=== PATIENT | female | born 1930 | race Caucasian/White ===

== ENCOUNTER 2018-04-27 02:39 | Inpatient (IN) ==
[2018-04-27 03:41] LABS: Basophils # (auto) 0.03 K/uL (0-0.2); Basophils % (auto) 0.3 %; Eosinophils # (auto) 0.31 K/uL (0-0.5); Hematocrit (blood only) 39.5 % (37-47); Hemoglobin 12.7 g/dL (12.0-16.0); Immature Granulocytes # (auto) 0.02 K/uL (0.00-0.02); Immature Granulocytes % (auto) 0.2 %; Lymphocytes # (auto) 2.21 K/uL (1.2-3.4); Lymphocytes % (auto) 21.5 %; Mean Corpuscular Hgb Conc 32.2 g/dL (32-36); Mean Corpuscular Volume 98.3 fL (80-100); Mean Platelet Volume 11.7 fL (7.4-10.4); Monocytes # (auto) 0.72 K/uL (0.11-0.59); Neutrophils # (auto) 6.98 K/uL (1.4-6.5); Platelet Count 188 K/uL (130-400); RDW Coefficient of Variation 13.6 % (11.5-14.5); RDW Standard Deviation 48.7 fL (36.4-46.3); Red Blood Count 4.02 M/uL (4.2-5.4); White Blood Count 10.27 K/uL (4.8-10.8)
[2018-04-27 03:51] LABS: Albumin Level 3.3 gm/dl (3.4-5.0); BUN Creatinine Ratio 19.4 (10-20); Calcium 9.1 mg/dl (8.5-10.1); Creatinine Clr Calc Pharmacy 35.5 ml/min; Est GFR (African American) 70.4; Est GFR (Non-African American) 60.7; Potassium 4.3 mmol/L (3.5-5.1)
[2018-04-27 03:53] LABS: Albumin Globulin Ratio 1.1 (0.9-2); Bilirubin,Total 0.6 mg/dl (0.2-1); Globulin 3.1 gm/dl (2.5-4.0); Total Protein 6.4 gm/dl (6.4-8.2)
[2018-04-27 04:51] LABS: INR 1.2 (0.9-1.1); Partial Thromboplastin Ratio 0.8; Prothrombin Time 11.7 Seconds (9.0-12.0)
[2018-04-27 05:09] LABS: Partial Thromboplastin Time 19.9 Seconds (21.0-31.0)
--- NOTE | 2018-04-27 06:49 | Ultrasound Report ---
US pelvic complete CLINICAL HISTORY: vaginal bleeding BLEEDING COMPARISON STUDY: None FINDINGS: The uterus measured 6.1 cm. The endometrial stripe measured 2 mm. The right ovary measured not identified due to overlying bowel content.. The left ovary measured 1.5 cm maximum dimension with normal vascular flow. There is no ultrasonographic evidence of ovarian torsion. It should be noted that ovarian torsion can be present with normal Doppler ultrasonographic findings. There was no evidence of pathologic free pelvic fluid. Bladder is distended with a postvoid residual of 500 cc IMPRESSION: 1. Significant post void bladder residual at 500 cc. 2. Study is otherwise unremarkable for age. 3. Nonvisualization right ovary due to overlying bowel content. The above report was generated using voice recognition software. It may contain grammatical, syntax or spelling errors. Electronically signed by: Dank Martin M.D. 04/27/2018 6:48 AM
[2018-04-27 06:52] LABS: Hematocrit (blood only) 37.7 % (37-47); Hemoglobin 12.2 g/dL (12.0-16.0); Mean Corpuscular Hgb Conc 32.4 g/dL (32-36); Mean Platelet Volume 11.4 fL (7.4-10.4); Platelet Count 148 K/uL (130-400); RDW Coefficient of Variation 13.4 % (11.5-14.5); RDW Standard Deviation 48.1 fL (36.4-46.3); Red Blood Count 3.81 M/uL (4.2-5.4); White Blood Count 9.88 K/uL (4.8-10.8)
--- NOTE | 2018-04-27 08:42 | Emergency Department Note ---
Entered by Brittany Meadows acting as a scribe for Valeria Mixon DO History of Present Illness General Chief complaint: Vaginal Bleeding Time Seen by Provider: 04/27/18 02:45 Source: patient History of Present Illness Onset (ago): day(s) 1 Location: genitals Severity: similar to prior episodes Quality: + other (bleeding) Associated symptoms: + other (dizziness, diarrhea ) The patient is a 88 year old female who presents to the Emergency Room with complaints of vaginal bleeding that began yesterday. She reports that she was diagnosed with a bladder infection, and was given antibiotics. The patient notes that she took 5 of the antibiotics. The patient reports that she had an ultrasound, noting that she had 2 cysts "on her kidneys or ovaries." She complains of dizziness and diarrhea. The patient notes that she has a history of ovarian cysts, and she states that these symptoms feel similar to when the cyst bursts 4 year ago. Home Medications Home Medications Medication Instructions Recorded Confirmed Type aspirin 81 mg PO Q OTHER DAY 04/27/18 04/27/18 History atorvastatin 20 mg PO DAILY 04/27/18 04/27/18 History calcium carbonate-vitamin D3 1 tab PO DAILY 04/27/18 04/27/18 History [Calcium 600 + D(3)] carvedilol 37.6 mg PO BID 04/27/18 04/27/18 History isosorbide dinitrate 10 mg PO HS 04/27/18 04/27/18 History lisinopril 2.5 mg PO HS 04/27/18 04/27/18 History magnesium oxide 400 mg PO DAILY 04/27/18 04/27/18 History vqqveuij-ysp-WL-lycopen-lutein 1 tab PO DAILY 04/27/18 04/27/18 History [Centrum Silver] nitrofurantoin macrocrystal 100 mg PO BID 04/27/18 04/27/18 History omega 7-lxj-onh-fish oil [Fish Oil] 1 cap PO DAILY 04/27/18 04/27/18 History pantoprazole 40 mg PO QAM 04/27/18 04/27/18 History vit C,Z-Ne-oniyq-lutein-zeaxan 1 tab PO BID 04/27/18 04/27/18 History [PreserVision AREDS-2] vitamin E 400 unit PO DAILY 04/27/18 04/27/18 History zoledronic bvtz-pogaquwx-ouain 1 dose IV YEARLY 04/27/18 04/27/18 History [Reclast] Allergies Allergy/AdvReac Type Severity Reaction Status Date / Time latex Allergy Rash Verified 04/27/18 10:07 Past Med/Surg History Medical History Ovarian cyst rupture Surgical History Postoperative state (Acute 06/01/13) Family History Other Family history non-contributory Social History Current Living Situation: Alone Other Information That Helps Us Care for You: No Feels Safe at Home: Yes Safety Concerns: Feels Safe At This Time Smoking Status: Never smoker Do You Dip or Chew Tobacco: No Second Hand Exposure: No Tobacco Cessation Education Requested by Patient: No Hx Alcohol Use: No Hx Substance Use: No Beliefs That Will Affect Care: None Preferred Language: Singaporean Communication Ability: Effective Floating [employer] Supervisor Required: No Review of Systems See HPI for pertinent positives & negatives. and A total of 10 systems reviewed and were otherwise negative Physical Exam Vital Signs Vital Signs - 24 hr 04/27/18 03:02 04/27/18 03:35 04/27/18 04:26 Temperature 36.7 C Temperature Source Oral Sepsis Recent Fever Within 48 Hours No Sepsis Action Taken by Nursing No Action Required Pulse Rate 88 95 H Pulse Rate [Right Finger] 87 Pulse Rhythm Regular Regular Pulse Rhythm [Right Finger] Regular Pulse Strength Normal Pulse Strength [Right Finger] Normal Respiratory Rate 24 16 16 Respiratory Effort / Characteristics Non-Labored Non-Labored Respiratory Depth Normal Normal Respiratory Pattern Regular Regular Blood Pressure 129/52 L Blood Pressure [Left Arm] Blood Pressure [Right Arm] 106/60 Blood Pressure Mean 77 Blood Pressure Mean [Left Arm] Blood Pressure Mean [Right Arm] 75 Blood Pressure Position Lying Blood Pressure Position [Left Arm] Blood Pressure Position [Right Arm] Lying Pulse Oximetry 98 97 Oxygen Delivery Method Room Air Room Air Room Air 04/27/18 06:00 04/27/18 06:28 04/27/18 07:51 Temperature Temperature Source Sepsis Recent Fever Within 48 Hours Sepsis Action Taken by Nursing Pulse Rate Pulse Rate [Right Finger] 94 H 91 H 83 Pulse Rhythm Pulse Rhythm [Right Finger] Regular Regular Regular Pulse Strength Pulse Strength [Right Finger] Normal Normal Normal Respiratory Rate 16 16 18 Respiratory Effort / Characteristics Non-Labored Non-Labored Non-Labored Spontaneous Respiratory Depth Normal Normal Normal Respiratory Pattern Regular Regular Regular Blood Pressure Blood Pressure [Left Arm] Blood Pressure [Right Arm] 116/91 117/89 131/63 Blood Pressure Mean Blood Pressure Mean [Left Arm] Blood Pressure Mean [Right Arm] 99 98 85 Blood Pressure Position Blood Pressure Position [Left Arm] Blood Pressure Position [Right Arm] Lying Lying Pulse Oximetry 99 98 98 Oxygen Delivery Method Room Air Room Air Room Air 04/27/18 08:54 04/27/18 11:49 04/27/18 12:19 Temperature 36.9 C 36.7 C Temperature Source Oral Oral Sepsis Recent Fever Within 48 Hours Sepsis Action Taken by Nursing Pulse Rate 91 H Pulse Rate [Right Finger] 71 89 Pulse Rhythm Pulse Rhythm [Right Finger] Regular Pulse Strength Pulse Strength [Right Finger] Normal Respiratory Rate 18 18 Respiratory Effort / Characteristics Non-Labored Spontaneous Respiratory Depth Normal Respiratory Pattern Regular Blood Pressure Blood Pressure [Left Arm] 135/66 Blood Pressure [Right Arm] 96/53 L Blood Pressure Mean Blood Pressure Mean [Left Arm] 89 Blood Pressure Mean [Right Arm] 67 Blood Pressure Position Blood Pressure Position [Left Arm] Lying Blood Pressure Position [Right Arm] Lying Pulse Oximetry 97 97 Oxygen Delivery Method Room Air Room Air 04/27/18 14:52 04/27/18 16:47 04/27/18 19:10 Temperature 37.2 C 37.3 C Temperature Source Oral Oral Sepsis Recent Fever Within 48 Hours Sepsis Action Taken by Nursing Pulse Rate 91 H Pulse Rate [Right Finger] 91 H 90 Pulse Rhythm Pulse Rhythm [Right Finger] Pulse Strength Pulse Strength [Right Finger] Respiratory Rate 18 18 Respiratory Effort / Characteristics Respiratory Depth Respiratory Pattern Blood Pressure Blood Pressure [Left Arm] Blood Pressure [Right Arm] 134/65 133/65 Blood Pressure Mean Blood Pressure Mean [Left Arm] Blood Pressure Mean [Right Arm] 88 87 Blood Pressure Position Blood Pressure Position [Left Arm] Blood Pressure Position [Right Arm] Lying Lying Pulse Oximetry 95 95 Oxygen Delivery Method Room Air Room Air 04/27/18 23:00 Temperature 36.8 C Temperature Source Oral Sepsis Recent Fever Within 48 Hours Sepsis Action Taken by Nursing Pulse Rate Pulse Rate [Right Finger] 98 H Pulse Rhythm Pulse Rhythm [Right Finger] Pulse Strength Pulse Strength [Right Finger] Respiratory Rate 16 Respiratory Effort / Characteristics Respiratory Depth Respiratory Pattern Blood Pressure Blood Pressure [Left Arm] 90/52 L Blood Pressure [Right Arm] Blood Pressure Mean Blood Pressure Mean [Left Arm] 64 Blood Pressure Mean [Right Arm] Blood Pressure Position Blood Pressure Position [Left Arm] Blood Pressure Position [Right Arm] Pulse Oximetry 95 Oxygen Delivery Method HEENT: Head - normocephalic and atraumatic Pupils are equal, round, and reactive to light. Extraocular eye muscles are intact, and sclera are anicteric. Nose - moist nasal mucosa without discharge. Mouth - moist buccal mucosa. Oropharynx is nonerythematous and there is no tonsillar exudate or edema noted. Neck: Supple; no JVD, nuchal rigidity, cervical lymphadenopathy. Heart: Regular rate and rhythm. There is a 4/6 systolic injection murmur. Lungs: Clear to auscultation bilaterally with no wheezes, rales, or rhonchi. Abdomen: Soft, completely nontender, nondistended, with good bowel sounds. There are no palpable pulsatile masses or hepatosplenomegaly. There is no guarding, rigidity, or rebound noted. Extremities: No evidence of cyanosis, clubbing, or edema. There are easily palpable peripheral pulses. Skin: warm and dry with good turgor and no rashes. Speculum exam: no blood within the vaginal canal. Obvious blood from the urethra. Rectal: Brown stool noted from the rectum with no obvious blood. Course 0316: Past medical records reviewed. The patient was evaluated in room A12, and a complete history and physical examination were performed. 0501: I obtained the patient's past medical records. According to these documents, the patient was originally on Cefdinir and was switched to Macrobid. The patient had an ultra sound on February 10, 2018. These results showed a 1.4 cm cyst on the left kidney, and she was recommended to get an MRI. In her bladder, she had some questionable debris and was recommended to have a cystoscopy. 0511: I went to check on the patient, but she was in ultrasound. 0545: The patient has a massive amount of blood coming out of her bladder. When she stood up, it came out on the floor. 0625: I checked on the patient. She was hemodynamically stable but had another large episode of hematuria 0630: I spoke to Dr. Diallo, Urology, about the patient�s case. She said that that she doesn't care for anyone that is not established with her. 0640: I spoke with Dr. Leal, [facility], about the patient�s case. He recommended that I put in a 20-22 Fr reynoso catheter and hand irrigate. He will further evaluate the patient. 0710: The patient�s hemoglobin dropped from 12.7 to 12.2. 0802: A reynoso catheter was inserted, and 700 mL of blood was removed. The nursing staff is currently in the process of irrigating. Consultations Consultation #1: I spoke to Dr. Diallo, Urology, about the patient�s case. She said that that she doesn't care for anyone that is not established with her. Time: 06:30 Consultation #2: I spoke with Dr. Leal, [facility] Urology, about the patient�s case. He recommended that I put in a 20-22 [place] reynoso catheter and hand irrigate. He will further evaluate the patient. Time: 06:40 Administered Medications Atorvastatin Calcium (Lipitor) 20 mg PO DAILY [facility] Stop: 05/27/18 11:33 Last Admin: 04/27/18 13:30 Dose: Not Given Carvedilol (Coreg) 37.5 mg PO BID [facility] Stop: 05/27/18 11:33 Last Admin: 04/27/18 20:47 Dose: 37.5 mg Admin: 04/27/18 13:30 Dose: Not Given Piperacillin Sod/Tazobactam (Sod 3.375 gm/ Dextrose) 115 mls @ 28.75 mls/hr IV Q8H [facility]; Protocol Stop: 05/07/18 11:59 Last Infusion: 04/27/18 21:51 Dose: 0 mls/hr Admin: 04/27/18 17:47 Dose: 28.8 mls/hr Isosorbide Dinitrate (Isordil) 10 mg PO HS [facility] Stop: 05/27/18 20:59 Last Admin: 04/27/18 20:48 Dose: 10 mg Lisinopril (Zestril) 2.5 mg PO HS [facility] Stop: 05/27/18 20:59 Last Admin: 04/27/18 20:48 Dose: 2.5 mg Magnesium Oxide (Mag-Ox) 400 mg PO DAILY KEVIN Stop: 05/27/18 11:33 Last Admin: 04/27/18 13:33 Dose: 400 mg Pantoprazole Sodium (Protonix) 40 mg PO QAM EKVIN Stop: 05/27/18 11:33 Last Admin: 04/27/18 13:31 Dose: Not Given Discontinued Medications Piperacillin Sod/Tazobactam (Sod 3.375 gm/ Dextrose) 115 mls @ 230 mls/hr IV NOW ONE; Protocol Stop: 04/27/18 12:59 Last Infusion: 04/27/18 15:26 Dose: 0 mls/hr Infusion: 04/27/18 14:45 Dose: 230 mls/hr Infusion: 04/27/18 13:50 Dose: 0 mls/hr Admin: 04/27/18 13:31 Dose: 230 mls/hr Lorazepam (Ativan) 0.25 mg PO NOW STA Stop: 04/27/18 23:40 Last Admin: 04/27/18 23:49 Dose: 0.25 mg Medical Decision Making Differential Diagnosis The differential diagnosis includes: TIA, near-syncope, vasovagal episode, anemia, hypovolemia, dysfunctional uterine bleeding, and ovarian cyst Medical Records Attestation: I reviewed the patient's medical records. Home Medications Current Medication List: was personally reviewed by me Laboratory Data Attestation: I reviewed the patient's lab results. Result diagrams: 04/27/18 23:25 04/27/18 02:16 Lab Results 04/27/18 04/27/18 04/27/18 Range/Units 02:16 02:16 04:33 WBC 10.27 (4.8-10.8) K/uL RBC 4.02 L (4.2-5.4) M/uL Hgb 12.7 (12.0-16.0) g/dL Hct 39.5 (37-47) % MCV 98.3 (80-100) fL MCH 31.6 (25-34) pg MCHC 32.2 (32-36) g/dL RDW Std Deviation 48.7 H (36.4-46.3) fL RDW Coeff of Annie 13.6 (11.5-14.5) % Plt Count 188 (130-400) K/uL MPV 11.7 H (7.4-10.4) fL Immature Gran % (Auto) 0.2 % Neut % (Auto) 68.0 % Lymph % (Auto) 21.5 % Bledsoe % (Auto) 7.0 % Eos % (Auto) 3.0 % Baso % (Auto) 0.3 % Immature Gran # (Auto) 0.02 (0.00-0.02) K/uL Neut # (Auto) 6.98 H (1.4-6.5) K/uL Lymph # (Auto) 2.21 (1.2-3.4) K/uL Bledsoe # (Auto) 0.72 H (0.11-0.59) K/uL Eos # (Auto) 0.31 (0-0.5) K/uL Baso # (Auto) 0.03 (0-0.2) K/uL PT 11.7 (9.0-12.0) Seconds INR 1.2 H (0.9-1.1) APTT 19.9 L (21.0-31.0) Seconds PTT Ratio 0.8 Sodium 138 (136-145) mmol/L Potassium 4.3 (3.5-5.1) mmol/L Chloride 105 (98-107) mmol/L Carbon Dioxide 28 (21-32) mmol/L Anion Gap 5.0 (3-11) BUN 17 (7-18) mg/dl Creatinine 0.85 (0.6-1.2) mg/dl Est Cr Clr Drug Dosing 35.5 ml/min Est GFR ( Amer) 70.4 Est GFR (Non-Af Amer) 60.7 BUN/Creatinine Ratio 19.4 (10-20) Glucose 141 H (70-99) mg/dl Calcium 9.1 (8.5-10.1) mg/dl Total Bilirubin 0.6 (0.2-1) mg/dl AST 29 (15-37) U/L ALT 33 (12-78) U/L Alkaline Phosphatase 91 (45-117) U/L Total Protein 6.4 (6.4-8.2) gm/dl Albumin 3.3 L (3.4-5.0) gm/dl Globulin 3.1 (2.5-4.0) gm/dl Albumin/Globulin Ratio 1.1 (0.9-2) Urine Color Urine Appearance (Clear) Urine pH (4.5-7.5) Ur Specific Nicasio (1.000-1.030) Urine Protein (Negative) Urine Glucose (UA) (Negative) Urine Ketones (Negative) Urine Blood (Negative) Urine Nitrite (Negative) Urine Bilirubin (Negative) Urine Urobilinogen (Negative) Ur Leukocyte Esterase (Negative) Urine WBC (Auto) (0-5) /hpf Urine RBC (Auto) (0-4) /hpf U Hyaline Cast (Auto) (0-5) /lpf U Epithel Cells (Auto) (0-5) /lpf Urine Bacteria (Auto) (Negative) Urine Yeast Blood Type Antibody Screen Antibody Identification Crossmatch 04/27/18 04/27/18 04/27/18 Range/Units 06:44 11:30 11:44 WBC 9.88 (4.8-10.8) K/uL RBC 3.81 L (4.2-5.4) M/uL Hgb 12.2 (12.0-16.0) g/dL Hct 37.7 (37-47) % MCV 99.0 (80-100) fL MCH 32.0 (25-34) pg MCHC 32.4 (32-36) g/dL RDW Std Deviation 48.1 H (36.4-46.3) fL RDW Coeff of Annie 13.4 (11.5-14.5) % Plt Count 148 (130-400) K/uL MPV 11.4 H (7.4-10.4) fL Immature Gran % (Auto) % Neut % (Auto) % Lymph % (Auto) % Bledsoe % (Auto) % Eos % (Auto) % Baso % (Auto) % Immature Gran # (Auto) (0.00-0.02) K/uL Neut # (Auto) (1.4-6.5) K/uL Lymph # (Auto) (1.2-3.4) K/uL Bledsoe # (Auto) (0.11-0.59) K/uL Eos # (Auto) (0-0.5) K/uL Baso # (Auto) (0-0.2) K/uL PT (9.0-12.0) Seconds INR (0.9-1.1) APTT (21.0-31.0) Seconds PTT Ratio Sodium (136-145) mmol/L Potassium (3.5-5.1) mmol/L Chloride (98-107) mmol/L Carbon Dioxide (21-32) mmol/L Anion Gap (3-11) BUN (7-18) mg/dl Creatinine (0.6-1.2) mg/dl Est Cr Clr Drug Dosing ml/min Est GFR ( Amer) Est GFR (Non-Af Amer) BUN/Creatinine Ratio (10-20) Glucose (70-99) mg/dl Calcium (8.5-10.1) mg/dl Total Bilirubin (0.2-1) mg/dl AST (15-37) U/L ALT (12-78) U/L Alkaline Phosphatase (45-117) U/L Total Protein (6.4-8.2) gm/dl Albumin (3.4-5.0) gm/dl Globulin (2.5-4.0) gm/dl Albumin/Globulin Ratio (0.9-2) Urine Color Red Urine Appearance Turbid H (Clear) Urine pH >= 9.0 H (4.5-7.5) Ur Specific Nicasio 1.013 (1.000-1.030) Urine Protein 1+ H (Negative) Urine Glucose (UA) Negative (Negative) Urine Ketones Negative (Negative) Urine Blood 3+ H (Negative) Urine Nitrite Positive H (Negative) Urine Bilirubin Negative (Negative) Urine Urobilinogen Negative (Negative) Ur Leukocyte Esterase 3+ H (Negative) Urine WBC (Auto) >30 H (0-5) /hpf Urine RBC (Auto) >30 H (0-4) /hpf U Hyaline Cast (Auto) 0 (0-5) /lpf U Epithel Cells (Auto) >30 H (0-5) /lpf Urine Bacteria (Auto) Negative (Negative) Urine Yeast Not Reportable Blood Type A Negative Antibody Screen POSITIVE A Antibody Identification Anti-D Crossmatch See Detail 04/27/18 04/27/18 04/27/18 Range/Units 11:44 17:30 23:25 WBC (4.8-10.8) K/uL RBC (4.2-5.4) M/uL Hgb 11.9 L 12.3 11.2 L (12.0-16.0) g/dL Hct 36.8 L 37.7 33.9 L (37-47) % MCV (80-100) fL MCH (25-34) pg MCHC (32-36) g/dL RDW Std Deviation (36.4-46.3) fL RDW Coeff of Annie (11.5-14.5) % Plt Count (130-400) K/uL MPV (7.4-10.4) fL Immature Gran % (Auto) % Neut % (Auto) % Lymph % (Auto) % Bledsoe % (Auto) % Eos % (Auto) % Baso % (Auto) % Immature Gran # (Auto) (0.00-0.02) K/uL Neut # (Auto) (1.4-6.5) K/uL Lymph # (Auto) (1.2-3.4) K/uL Bledsoe # (Auto) (0.11-0.59) K/uL Eos # (Auto) (0-0.5) K/uL Baso # (Auto) (0-0.2) K/uL PT (9.0-12.0) Seconds INR (0.9-1.1) APTT (21.0-31.0) Seconds PTT Ratio Sodium (136-145) mmol/L Potassium (3.5-5.1) mmol/L Chloride (98-107) mmol/L Carbon Dioxide (21-32) mmol/L Anion Gap (3-11) BUN (7-18) mg/dl Creatinine (0.6-1.2) mg/dl Est Cr Clr Drug Dosing ml/min Est GFR ( Amer) Est GFR (Non-Af Amer) BUN/Creatinine Ratio (10-20) Glucose (70-99) mg/dl Calcium (8.5-10.1) mg/dl Total Bilirubin (0.2-1) mg/dl AST (15-37) U/L ALT (12-78) U/L Alkaline Phosphatase (45-117) U/L Total Protein (6.4-8.2) gm/dl Albumin (3.4-5.0) gm/dl Globulin (2.5-4.0) gm/dl Albumin/Globulin Ratio (0.9-2) Urine Color Urine Appearance (Clear) Urine pH (4.5-7.5) Ur Specific Nicasio (1.000-1.030) Urine Protein (Negative) Urine Glucose (UA) (Negative) Urine Ketones (Negative) Urine Blood (Negative) Urine Nitrite (Negative) Urine Bilirubin (Negative) Urine Urobilinogen (Negative) Ur Leukocyte Esterase (Negative) Urine WBC (Auto) (0-5) /hpf Urine RBC (Auto) (0-4) /hpf U Hyaline Cast (Auto) (0-5) /lpf U Epithel Cells (Auto) (0-5) /lpf Urine Bacteria (Auto) (Negative) Urine Yeast Blood Type Antibody Screen Antibody Identification Crossmatch Imaging Data Radiologist's Impression: Radiology results as stated below per my review and the radiologist's interpretation: US PELVIS: Small, partially visualized uterus with peripheral calcification and possibly small fibroids. Endometrial thickness is 2 mm. Prominently distended urinary bladder, 543.59 mL postvoid residual. There is extensive debris/ echogenic material within the dependent urinary bladder. A portion of this is mobile, with a nonmobile echogenic portion at midline on decubitus positioning. No internal vasculature identified on Doppler imaging. This could represent hemorrhage though underlying neoplastic changes cannot be excluded. Correlate for outlet obstruction. Radiologist: Jarocho Crystal MD Study ready at 06:08 and initial results transmitted at 06:41. Blood Pressure Blood Pressure Findings: Normal blood pressure Blood Pressure Disposition: did not require urgent referral MDM Narrative The patient is a 88 year old female who presents to the Emergency Room with complaints of vaginal bleeding that began yesterday. The patient describes some significant cramping associated with the bleeding. She went for an ultrasound here in the emergency department which showed that she had a large amount of blood within her bladder and that the uterus was empty. While she was in ultrasound, she stood up at the bedside and a large amount of blood came from the bladder including large blood clots. She was returned to the emergency department. Her vitals remained stable. We did repeat her hemoglobin to compare to earlier and it had dropped by half of a gram. She had multiple additional episodes of hematuria. A Reynoso catheter was placed and I discussed the case with urology. [facility] into the hospital. Impression & Plan Hematuria Discharge Plan Visit Data *Final* Discharge Date/Time: 04/27/18 11:04 Chief Complaint: Vaginal Bleeding Other Complaint: Neuro Symptoms/Deficit ED Provider: Valeria Mixon Discharge Problem: Hematuria Patient Disposition: Admitted As Inpatient Discharge Instructions Interventions: ED Discharge Assessment Last Done: 04/27/18 11:04 The scribe's documentation has been prepared under my direction and personally reviewed by me in its entirety. I confirm that the note above accurately reflects all work, treatment, procedures, and medical decision making performed by me.
--- NOTE | 2018-04-27 09:21 | History & Physical Report ---
Date of Service April 27, 2018 Assessment & Plan (1) Hematuria: HD stable H&H q6h [address] On hold Dr. Leal notified, consulted NPO for now except sips/ice chips, meds very gentle IV NSS in light of aortic stenosis (2) UTI (urinary tract infection): urine culture done as outpatient 04/20/18: (+) E Coli patient had pruritus with Cefnidir changed to Macrodantin C&S reviewed, start Zosyn IV for now repeat Urine Culture (3) Coronary artery disease: no cardiac symptoms hold ASA in light of gross hematuria continue Carvedilol, Isordil, Lisinopril (4) Aortic stenosis: monitor closely while on IV fluids (5) Hypertension: stable continue above medications (6) CKD (chronic kidney disease) stage 3, GFR 30-59 ml/min: stable monitor DVT Prophylaxis SCDs Full Code as per patient Dispo lives independently at home History of Present Illness Primary Care Provider: Teresa Quinteros DO 88-year-old female with history of CAD, aortic stenosis, hypertension, CKD stage III, presenting with gross hematuriPatient was seen at the PCP office a week ago and was found to have urinary tract infection. Urine culture revealed E. coli and patient was given Cefnidir. Patient was able to tolerate the antibiotics only for 2 days due to not feeling well, pruritus. She was then switched to nitrofurantoin which the patient has been taking for 2 days. One day prior to admission the patient started to note hematuria but denies dysuria. This is associated with some mild suprapubic pain. Denies fever, chills, nausea, vomiting. Denies other symptoms She then proceeded to the ER for evaluation. At the ER, patient's H&H was around 12. Urologist Dr. Leal was consulted. On exam, patient is sitting up in bed, comfortable, nondistressed. Crocker catheter placed draining grossly bloody urine. Denies active shortness of breath, chest pain, dizziness, abdominal pain, nausea. Denies other symptoms Allergies Allergy/AdvReac Type Severity Reaction Status Date / Time latex Allergy Rash Verified 04/27/18 10:07 Home Medications Home Medications Medication Instructions Recorded Confirmed Type aspirin 81 mg PO Q OTHER DAY 04/27/18 04/27/18 History atorvastatin 20 mg PO DAILY 04/27/18 04/27/18 History calcium carbonate-vitamin D3 1 tab PO DAILY 04/27/18 04/27/18 History [Calcium 600 + D(3)] carvedilol 37.6 mg PO BID 04/27/18 04/27/18 History isosorbide dinitrate 10 mg PO HS 04/27/18 04/27/18 History lisinopril 2.5 mg PO HS 04/27/18 04/27/18 History magnesium oxide 400 mg PO DAILY 04/27/18 04/27/18 History eefudjqw-hdh-JR-lycopen-lutein 1 tab PO DAILY 04/27/18 04/27/18 History [Centrum Silver] omega 8-iqc-lzn-fish oil [Fish Oil] 1 cap PO DAILY 04/27/18 04/27/18 History pantoprazole 40 mg PO QAM 04/27/18 04/27/18 History vit C,G-Yt-gbhfu-lutein-zeaxan 1 tab PO BID 04/27/18 04/27/18 History [PreserVision AREDS-2] vitamin E 400 unit PO DAILY 04/27/18 04/27/18 History zoledronic oiwm-webjizyd-tstnh 1 dose IV YEARLY 04/27/18 04/27/18 History [Reclast] nitrofurantoin macrocrystal 100 mg PO BID 5 Days #10 cap 04/28/18 Rx Past Med/Surg History Medical History Ovarian cyst rupture Surgical History Postoperative state (Acute 06/01/13) Family History Other Family history non-contributory Social History Current Living Situation: Alone Other Information That Helps Us Care for You: No Feels Safe at Home: Yes Safety Concerns: Feels Safe At This Time Smoking Status: Never smoker Do You Dip or Chew Tobacco: No Second Hand Exposure: No Tobacco Cessation Education Requested by Patient: No Hx Alcohol Use: No Hx Substance Use: No Beliefs That Will Affect Care: None Preferred Language: Sudanese Review of Systems Constitutional- no fever; no weight loss Eyes- no acute visual changes ENT- no sinus drainage; no pharyngitis Pulmonary- no cough, no wheezing, no shortness of breath Cardiac- no chest pain, no palpitations, no orthopnea, no dependent edema GI- no nausea, no vomiting, no diarrhea, no melena, no hematochezia - (+) as noted above Musculoskeletal- no arthralgias, no myalgias Derm- no rashes, no new skin lesions, no changing skin lesions Hematologic- no unusual bruising, no unusual bleeding Lymphatics- no adenopathy Endocrine- no polyuria or polydipsia; no heat or cold intolerance Neuro- no headaches, no focal neurologic symptoms Psych- no anxiety, no depression Physical Exam 2 Vital Signs (Past 24 Hours): Last Vital Signs Temp 36.9 C 04/27/18 08:54 Pulse 71 04/27/18 08:54 Resp 18 04/27/18 08:54 BP 96/53 L 04/27/18 08:54 Pulse Ox 97 04/27/18 08:54 Physical Exam: General- oriented x 3, not in distress, speaks in sentences with no effort or accessory muscle use Head- atraumatic Eyes- PERRL, EOMI, anicteric ENT- oropharynx clear Neck- supple, no JVD, no adenopathy, no thyromegaly; carotids +2/2, no bruits appreciated Lungs- clear to auscultation bilaterally, no rales/wheezes Heart- normal rate, regular rhythm; no murmur, no gallop, no rub appreciated Abdomen- normal bowel sounds, nondistended, soft, nontender, no masses or hepatosplenomegaly Extremities- no pretibial edema, no calf tenderness; peripheral pulses intact Neuro- alert, oriented x 3; CN 2-12 grossly intact; motor 5/5 bilaterally; sensation 100% on all extremities; no other gross focal neurologic deficits Skin- warm & dry Results & Data Laboratory Results Laboratory Results - last 24 hr 04/27/18 04/27/18 04/27/18 11:44 17:30 23:25 WBC RBC Hgb 12.3 11.2 L Hct 37.7 33.9 L MCV MCH MCHC RDW Std Deviation RDW Coeff of Annie Plt Count MPV Immature Gran % (Auto) Neut % (Auto) Lymph % (Auto) [place] % (Auto) Eos % (Auto) Baso % (Auto) Immature Gran # (Auto) Neut # (Auto) Lymph # (Auto) [place] # (Auto) Eos # (Auto) Baso # (Auto) Sodium Potassium Chloride Carbon Dioxide Anion Gap BUN Creatinine Est Cr Clr Drug Dosing Est GFR ( Amer) Est GFR (Non-Af Amer) BUN/Creatinine Ratio Glucose Calcium Antibody Identification Anti-D 04/28/18 04/28/18 11:45 11:45 WBC 8.56 RBC 3.61 L Hgb 11.5 L Hct 35.7 L MCV 98.9 MCH 31.9 MCHC 32.2 RDW Std Deviation 50.5 H RDW Coeff of Annie 13.9 Plt Count 191 MPV 9.7 Immature Gran % (Auto) 0.2 Neut % (Auto) 69.6 Lymph % (Auto) 19.9 [place] % (Auto) 8.2 Eos % (Auto) 1.6 Baso % (Auto) 0.5 Immature Gran # (Auto) 0.02 Neut # (Auto) 5.96 Lymph # (Auto) 1.70 [place] # (Auto) 0.70 H Eos # (Auto) 0.14 Baso # (Auto) 0.04 Sodium 139 Potassium 3.7 Chloride 105 Carbon Dioxide 30 Anion Gap 5.0 BUN 15 Creatinine 0.99 Est Cr Clr Drug Dosing 30.5 Est GFR ( Amer) 58.6 Est GFR (Non-Af Amer) 50.5 BUN/Creatinine Ratio 15.3 Glucose 128 H Calcium 8.8 Antibody Identification _ (1) Hematuria Glomerular morphologic changes: Hematuria type: unspecified type Qualified Code(s): R31.9 - Hematuria, unspecified
[2018-04-27] MEDS ORDERED: ACETAMINOPHEN 325 MG TAB PO PRN (11:34)
[2018-04-27] MEDS ORDERED: ONDANSETRON INJ 2 MG/ML 2 ML VIAL IV PRN (11:34)
[2018-04-27] MEDS ORDERED: SODIUM CHLORIDE 0.9% 250 ML IV PRN (11:34)
[2018-04-27 11:45] LABS: Appearance Urine Turbid (Clear); Bacteria Urine Automated Negative (Negative); Color Urine Red; Epithelial Cell Urine Auto >30 /lpf (0-5); Glucose Urine UA Negative (Negative); Ketones Urine Negative (Negative); Leukocyte Esterase Urine 3+ (Negative); Nitrite Urine Positive (Negative); Specific Gravity Urine 1.013 (1.000-1.030); Urobilinogen Urine Negative (Negative); WBC Urine Automated >30 /hpf (0-5); pH Urine >= 9.0 (4.5-7.5)
[2018-04-27 11:54] LABS: Bilirubin Urine Negative (Negative); Ictotest Urine Negative (Negative); Protein Urine 1+ (Negative)
[2018-04-27] MEDS ORDERED: PIPERACILL/TAZOBAC CONSULT ACTIVE PRN (11:55)
[2018-04-27 11:57] LABS: Hematocrit (blood only) 36.8 % (37-47); Hemoglobin 11.9 g/dL (12.0-16.0)
[2018-04-27 12:01] LABS: Cast Urine Automated 0 /lpf (0-5)
[2018-04-27] MEDS ORDERED: PIPERACILLIN/TAZOBACTAM 3.375 GM in DEXTROSE 5% 100 ML IV ONE (12:30)
[2018-04-27] MEDS: ATORVASTATIN 20 MG TAB PO SCH (13:30)
[2018-04-27] MEDS: CARVEDILOL 25 MG TAB PO SCH ×2 (13:30→20:47)
[2018-04-27] MEDS: PANTOprazole 40 MG TAB PO SCH (13:31)
[2018-04-27] MEDS: MAGNESIUM OXIDE 400 MG TAB PO SCH (13:33)
--- NOTE | 2018-04-27 16:05 | Urology Consultation ---
Date of Consultation April 27, 2018 Assessment & Plan (1) UTI (urinary tract infection): (2) Hematuria: 88yo F with clot retention and gross hematuria in the setting [facility] H/H and Cr stable. VS stable, afebrile Urine clearing up nicely, light pink to clear with minimal clots this afternoon. Repeat UC&S pending, Continue broad spectrum abx and IVF's. Recommendations: Maintain catheter for 7-10d to allow for maximum drainage and bladder rest. Hold ASA, monitor H/H Okay to gently hand irrigate PRN for clots. Okay for diet from our perspective. NPO at SD to reassess. Thank you for the consultation, we will continue to monitor closely with primary service. History of Present Illness Reason for Consultation: gross hematuria Requesting Physician: Dr. Marley Attending Physician: Raul Marley MD History of Present Illness 88yo F with hx of HTN, , CKD presents to [facility] ED this morning after experiencing what she felt to be vaginal bleeding since Tuesday. Currently being treated for E.Coli UTI by PCP, 5 days into treatment. UTI symptoms characterized by urgency/frequency and dysuria. Did not experience hematuria at that time. Pt reports having some cramping, like menstrual cramping with bleeding. Pelvic US notes bladder distention with large volume PVR. Reynoso catheter placed in ED, drained 700cc wolf red urine with clots. Hand irrigation done, pt tolerated well she reports. Pt denies suprapubic or flank pain. Denies bladder spasms. Sitting in bed, alert and oriented. Per patient she has been attempting to make apt with Urology for many months regarding recurrent UTIs. UTIs characterized by Urg/frequency and incontinence, treated previously by her PCP. States she gave her a "big bottle of cipro" and would take that PRN. States she has had one prior episode of 'bleeding', when a cyst ruptured. Unclear if ovarian or renal, unclear if hematuria or vaginal bleeding. pt unable to distinguish. CAD with 3 stents, takes a baby ASA only, every other day. Allergies Allergy/AdvReac Type Severity Reaction Status Date / Time latex Allergy Rash Verified 04/27/18 10:07 Home Medications Home Medications Medication Instructions Recorded Confirmed Type aspirin 81 mg PO Q OTHER DAY 04/27/18 04/27/18 History atorvastatin 20 mg PO DAILY 04/27/18 04/27/18 History calcium carbonate-vitamin D3 1 tab PO DAILY 04/27/18 04/27/18 History [Calcium 600 + D(3)] carvedilol 37.6 mg PO BID 04/27/18 04/27/18 History isosorbide dinitrate 10 mg PO HS 04/27/18 04/27/18 History lisinopril 2.5 mg PO HS 04/27/18 04/27/18 History magnesium oxide 400 mg PO DAILY 04/27/18 04/27/18 History fcprwvet-qad-PJ-lycopen-lutein 1 tab PO DAILY 04/27/18 04/27/18 History [Centrum Silver] nitrofurantoin macrocrystal 100 mg PO BID 04/27/18 04/27/18 History omega 9-zna-uaa-fish oil [Fish Oil] 1 cap PO DAILY 04/27/18 04/27/18 History pantoprazole 40 mg PO QAM 04/27/18 04/27/18 History vit C,M-Dg-pnipd-lutein-zeaxan 1 tab PO BID 04/27/18 04/27/18 History [PreserVision AREDS-2] vitamin E 400 unit PO DAILY 04/27/18 04/27/18 History zoledronic leva-bebqzaec-vscsn 1 dose IV YEARLY 04/27/18 04/27/18 History [Reclast] Patient History Medical History Ovarian cyst rupture Surgical History Postoperative state (Acute 06/01/13) Family History Other Family history non-contributory Social History Current Living Situation: Alone Other Information That Helps Us Care for You: No Feels Safe at Home: Yes Safety Concerns: Feels Safe At This Time Smoking Status: Never smoker Do You Dip or Chew Tobacco: No Second Hand Exposure: No Tobacco Cessation Education Requested by Patient: No Hx Alcohol Use: No Hx Substance Use: No Beliefs That Will Affect Care: None Preferred Language: French Communication Ability: Effective Sas Bi Developer Required: No Review of Systems Constitutional: no fever and no chills Eyes: no problem reported Ear, Nose, Mouth, Throat: no ear pain Respiratory: no cough and no dyspnea Cardiovascular: no chest pain Gastrointestinal: no abdominal pain Genitourinary (Female): + hematuria; no dysuria, no urinary urgency and no flank pain Musculoskeletal: no back pain Integumentary: no acne Neurologic: no numbness and no paresthesia Psychiatric: no behavioral changes Endocrine: no fatigue Hematologic / Lymphatic: no unexplained weight loss Physical Exam 2 Vital Signs (Past 24 Hours): Last Vital Signs Temp 37.2 C 04/27/18 14:52 Pulse 91 H 04/27/18 14:52 Resp 18 04/27/18 14:52 BP 134/65 04/27/18 14:52 Pulse Ox 95 04/27/18 14:52 Constitutional: average body habitus; no acute distress and not lethargic Eyes: no nystagmus corrective lenses on ENMT: Ears: no hearing impairment Neck: trachea midline Respiratory: no respiratory distress and does not use accessory muscles Cardiovascular: Vessels: no JVD Gastrointestinal (Abdomen): Inspection/Auscultation: abdomen not distended and no abdominal edema Musculoskeletal: Head/Neck/Chest: + abnormal head shape Skin: no rashes, warm and dry Neurologic: awake; not confused and not obtunded Psychiatric: Orientation: alert and oriented x 3 Eye Contact: good eye contact Genitourinary: reynoso catheter draining pink to clear with scattered small blot clots. Lymphatic: no cervical or axillary lymphadenopathy Results & Data Laboratory Results Laboratory Results - last 48 hr 04/27/18 04/27/18 04/27/18 02:16 02:16 04:33 WBC 10.27 RBC 4.02 L Hgb 12.7 Hct 39.5 MCV 98.3 MCH 31.6 MCHC 32.2 RDW Std Deviation 48.7 H RDW Coeff of Annie 13.6 Plt Count 188 MPV 11.7 H Immature Gran % (Auto) 0.2 Neut % (Auto) 68.0 Lymph % (Auto) 21.5 [place] % (Auto) 7.0 Eos % (Auto) 3.0 Baso % (Auto) 0.3 Immature Gran # (Auto) 0.02 Neut # (Auto) 6.98 H Lymph # (Auto) 2.21 [place] # (Auto) 0.72 H Eos # (Auto) 0.31 Baso # (Auto) 0.03 PT 11.7 INR 1.2 H APTT 19.9 L PTT Ratio 0.8 Sodium 138 Potassium 4.3 Chloride 105 Carbon Dioxide 28 Anion Gap 5.0 BUN 17 Creatinine 0.85 Est Cr Clr Drug Dosing 35.5 Est GFR ( Amer) 70.4 Est GFR (Non-Af Amer) 60.7 BUN/Creatinine Ratio 19.4 Glucose 141 H Calcium 9.1 Total Bilirubin 0.6 AST 29 ALT 33 Alkaline Phosphatase 91 Total Protein 6.4 Albumin 3.3 L Globulin 3.1 Albumin/Globulin Ratio 1.1 Urine Color Urine Appearance Urine pH Ur Specific [place] Urine Protein Urine Glucose (UA) Urine Ketones Urine Blood Urine Nitrite Urine Bilirubin Urine Urobilinogen Ur Leukocyte Esterase Urine WBC (Auto) Urine RBC (Auto) U Hyaline Cast (Auto) U Epithel Cells (Auto) Urine Bacteria (Auto) Urine Yeast Blood Type Antibody Screen Antibody Identification Crossmatch 04/27/18 04/27/18 04/27/18 06:44 11:30 11:44 WBC 9.88 RBC 3.81 L Hgb 12.2 Hct 37.7 MCV 99.0 MCH 32.0 MCHC 32.4 RDW Std Deviation 48.1 H RDW Coeff of Annie 13.4 Plt Count 148 MPV 11.4 H Immature Gran % (Auto) Neut % (Auto) Lymph % (Auto) [place] % (Auto) Eos % (Auto) Baso % (Auto) Immature Gran # (Auto) Neut # (Auto) Lymph # (Auto) [place] # (Auto) Eos # (Auto) Baso # (Auto) PT INR APTT PTT Ratio Sodium Potassium Chloride Carbon Dioxide Anion Gap BUN Creatinine Est Cr Clr Drug Dosing Est GFR ( Amer) Est GFR (Non-Af Amer) BUN/Creatinine Ratio Glucose Calcium Total Bilirubin AST ALT Alkaline Phosphatase Total Protein Albumin Globulin Albumin/Globulin Ratio Urine Color Red Urine Appearance Turbid H Urine pH >= 9.0 H Ur Specific [place] 1.013 Urine Protein 1+ H Urine Glucose (UA) Negative Urine Ketones Negative Urine Blood 3+ H Urine Nitrite Positive H Urine Bilirubin Negative Urine Urobilinogen Negative Ur Leukocyte Esterase 3+ H Urine WBC (Auto) >30 H Urine RBC (Auto) >30 H U Hyaline Cast (Auto) 0 U Epithel Cells (Auto) >30 H Urine Bacteria (Auto) Negative Urine Yeast Not Reportable Blood Type A Negative Antibody Screen POSITIVE A Antibody Identification Anti-D Crossmatch See Detail 04/27/18 11:44 WBC RBC Hgb 11.9 L Hct 36.8 L MCV MCH MCHC RDW Std Deviation RDW Coeff of Annie Plt Count MPV Immature Gran % (Auto) Neut % (Auto) Lymph % (Auto) [place] % (Auto) Eos % (Auto) Baso % (Auto) Immature Gran # (Auto) Neut # (Auto) Lymph # (Auto) [place] # (Auto) Eos # (Auto) Baso # (Auto) PT INR APTT PTT Ratio Sodium Potassium Chloride Carbon Dioxide Anion Gap BUN Creatinine Est Cr Clr Drug Dosing Est GFR ( Amer) Est GFR (Non-Af Amer) BUN/Creatinine Ratio Glucose Calcium Total Bilirubin AST ALT Alkaline Phosphatase Total Protein Albumin Globulin Albumin/Globulin Ratio Urine Color Urine Appearance Urine pH Ur Specific [place] Urine Protein Urine Glucose (UA) Urine Ketones Urine Blood Urine Nitrite Urine Bilirubin Urine Urobilinogen Ur Leukocyte Esterase Urine WBC (Auto) Urine RBC (Auto) U Hyaline Cast (Auto) U Epithel Cells (Auto) Urine Bacteria (Auto) Urine Yeast Blood Type Antibody Screen Antibody Identification Crossmatch _ (1) Hematuria Glomerular morphologic changes: Hematuria type: unspecified type Qualified Code(s): R31.9 - Hematuria, unspecified
[2018-04-27] MEDS: PIPERACILLIN/TAZOBACTAM 3.375 GM in DEXTROSE 5% 100 ML IV SCH (17:47)
[2018-04-27 18:03] LABS: Hematocrit (blood only) 37.7 % (37-47); Hemoglobin 12.3 g/dL (12.0-16.0)
[2018-04-27] MEDS ORDERED: LISINOPRIL 2.5 MG TAB PO SCH (21:00)
[2018-04-27] MEDS ORDERED: ISOSORBIDE DINITRATE 10 MG TAB PO SCH (21:00)
[2018-04-27 23:33] LABS: Hematocrit (blood only) 33.9 % (37-47); Hemoglobin 11.2 g/dL (12.0-16.0)
[2018-04-27] MEDS ORDERED: LORazepam 0.5 MG TAB PO STA (23:39)
[2018-04-28] MEDS: PIPERACILLIN/TAZOBACTAM 3.375 GM in DEXTROSE 5% 100 ML IV SCH ×2 (02:10→11:04)
--- NOTE | 2018-04-28 07:36 | Urology Progress Note ---
Date of Service April 28, 2018 Assessment & Plan (1) Hematuria: A/P 88 yo female with resolved gross hematuria, UTI. Findings reviewed with patient. Will order DC of reynoso catheter, urine improved. Patient is in the midst of an outpatient course of antibiotics for UTI - she is instructed to complete this. Will request past outpatient records and imaging for review prior to ordering any new testing. Will arrange for outpatient cysto in ~ 3 weeks to allow for some of her acute irritation to resolve to continue her hematuria evaluation. Worrisome signs and symptoms reviewed. Stable for DC home from a perspective. Thank you for allowing us to participate in this patient's care. Please recall our service with any questions or concers. Subjective 88 yo female with a history of irritative voiding symptoms, renal cysts, recurrent UTIs per her recounting and recent gross hematuria seen by our service. [employer]ENTICE consult and progress notes reviewed. Patient feels well, little bother, CC arthritic stiffness. Urine much improved, clear in catheter. Outpatient events over the past few months recounted by patient. Labs stable, renal function wnl. Constitutional: no fever and no chills Respiratory: no hemoptysis Cardiovascular: no chest pain Gastrointestinal: no abdominal pain, no nausea and no vomiting Genitourinary (Female): + as per Subjective / HPI Musculoskeletal: + back pain, + joint pain and + stiffness Integumentary: no acne and no boil Neurologic: no paralysis and no numbness Psychiatric: no hopelessness Hematologic / Lymphatic: no easy bleeding Physical Exam 2 Vital Signs (Past 24 Hours): Last Vital Signs Temp 36.9 C 04/28/18 07:18 Pulse 79 04/28/18 07:18 Resp 16 04/28/18 07:18 BP 110/58 L 04/28/18 07:18 Pulse Ox 91 04/28/18 07:18 Constitutional: WD/WN, vitals as above Neck: trachea midline; no anterior neck swelling Respiratory: no respiratory distress and does not use accessory muscles Cardiovascular: Vessels: radial pulses present Gastrointestinal (Abdomen): Percussion/Palpation: abdomen soft; abdomen nontender Skin: normal turgor Neurologic: awake; not obtunded Psychiatric: Orientation: oriented x 3 Lymphatic: no lymphadenopathy Results & Data Laboratory Results Laboratory Results - last 48 hr 04/27/18 04/27/18 04/27/18 02:16 02:16 04:33 WBC 10.27 RBC 4.02 L Hgb 12.7 Hct 39.5 MCV 98.3 MCH 31.6 MCHC 32.2 RDW Std Deviation 48.7 H RDW Coeff of Annie 13.6 Plt Count 188 MPV 11.7 H Immature Gran % (Auto) 0.2 Neut % (Auto) 68.0 Lymph % (Auto) 21.5 [place] % (Auto) 7.0 Eos % (Auto) 3.0 Baso % (Auto) 0.3 Immature Gran # (Auto) 0.02 Neut # (Auto) 6.98 H Lymph # (Auto) 2.21 [place] # (Auto) 0.72 H Eos # (Auto) 0.31 Baso # (Auto) 0.03 PT 11.7 INR 1.2 H APTT 19.9 L PTT Ratio 0.8 Sodium 138 Potassium 4.3 Chloride 105 Carbon Dioxide 28 Anion Gap 5.0 BUN 17 Creatinine 0.85 Est Cr Clr Drug Dosing 35.5 Est GFR ( Amer) 70.4 Est GFR (Non-Af Amer) 60.7 BUN/Creatinine Ratio 19.4 Glucose 141 H Calcium 9.1 Total Bilirubin 0.6 AST 29 ALT 33 Alkaline Phosphatase 91 Total Protein 6.4 Albumin 3.3 L Globulin 3.1 Albumin/Globulin Ratio 1.1 Urine Color Urine Appearance Urine pH Ur Specific [place] Urine Protein Urine Glucose (UA) Urine Ketones Urine Blood Urine Nitrite Urine Bilirubin Urine Urobilinogen Ur Leukocyte Esterase Urine WBC (Auto) Urine RBC (Auto) U Hyaline Cast (Auto) U Epithel Cells (Auto) Urine Bacteria (Auto) Urine Yeast Blood Type Antibody Screen Antibody Identification Crossmatch 04/27/18 04/27/18 04/27/18 06:44 11:30 11:44 WBC 9.88 RBC 3.81 L Hgb 12.2 Hct 37.7 MCV 99.0 MCH 32.0 MCHC 32.4 RDW Std Deviation 48.1 H RDW Coeff of Annie 13.4 Plt Count 148 MPV 11.4 H Immature Gran % (Auto) Neut % (Auto) Lymph % (Auto) [place] % (Auto) Eos % (Auto) Baso % (Auto) Immature Gran # (Auto) Neut # (Auto) Lymph # (Auto) [place] # (Auto) Eos # (Auto) Baso # (Auto) PT INR APTT PTT Ratio Sodium Potassium Chloride Carbon Dioxide Anion Gap BUN Creatinine Est Cr Clr Drug Dosing Est GFR ( Amer) Est GFR (Non-Af Amer) BUN/Creatinine Ratio Glucose Calcium Total Bilirubin AST ALT Alkaline Phosphatase Total Protein Albumin Globulin Albumin/Globulin Ratio Urine Color Red Urine Appearance Turbid H Urine pH >= 9.0 H Ur Specific [place] 1.013 Urine Protein 1+ H Urine Glucose (UA) Negative Urine Ketones Negative Urine Blood 3+ H Urine Nitrite Positive H Urine Bilirubin Negative Urine Urobilinogen Negative Ur Leukocyte Esterase 3+ H Urine WBC (Auto) >30 H Urine RBC (Auto) >30 H U Hyaline Cast (Auto) 0 U Epithel Cells (Auto) >30 H Urine Bacteria (Auto) Negative Urine Yeast Not Reportable Blood Type A Negative Antibody Screen POSITIVE A Antibody Identification Anti-D Crossmatch See Detail 04/27/18 04/27/18 04/27/18 11:44 17:30 23:25 WBC RBC Hgb 11.9 L 12.3 11.2 L Hct 36.8 L 37.7 33.9 L MCV MCH MCHC RDW Std Deviation RDW Coeff of Annie Plt Count MPV Immature Gran % (Auto) Neut % (Auto) Lymph % (Auto) [place] % (Auto) Eos % (Auto) Baso % (Auto) Immature Gran # (Auto) Neut # (Auto) Lymph # (Auto) [place] # (Auto) Eos # (Auto) Baso # (Auto) PT INR APTT PTT Ratio Sodium Potassium Chloride Carbon Dioxide Anion Gap BUN Creatinine Est Cr Clr Drug Dosing Est GFR ( Amer) Est GFR (Non-Af Amer) BUN/Creatinine Ratio Glucose Calcium Total Bilirubin AST ALT Alkaline Phosphatase Total Protein Albumin Globulin Albumin/Globulin Ratio Urine Color Urine Appearance Urine pH Ur Specific [place] Urine Protein Urine Glucose (UA) Urine Ketones Urine Blood Urine Nitrite Urine Bilirubin Urine Urobilinogen Ur Leukocyte Esterase Urine WBC (Auto) Urine RBC (Auto) U Hyaline Cast (Auto) U Epithel Cells (Auto) Urine Bacteria (Auto) Urine Yeast Blood Type Antibody Screen Antibody Identification Crossmatch _ (1) Hematuria Glomerular morphologic changes: Hematuria type: unspecified type Qualified Code(s): R31.9 - Hematuria, unspecified
[2018-04-28] MEDS: ATORVASTATIN 20 MG TAB PO SCH (08:33)
[2018-04-28] MEDS: PANTOprazole 40 MG TAB PO SCH (08:33)
[2018-04-28] MEDS: CARVEDILOL 25 MG TAB PO SCH (08:33)
[2018-04-28] MEDS: MAGNESIUM OXIDE 400 MG TAB PO SCH (08:34)
[2018-04-28 12:02] LABS: Basophils # (auto) 0.04 K/uL (0-0.2); Basophils % (auto) 0.5 %; Eosinophils # (auto) 0.14 K/uL (0-0.5); Eosinophils % (auto) 1.6 %; Hematocrit (blood only) 35.7 % (37-47); Hemoglobin 11.5 g/dL (12.0-16.0); Immature Granulocytes # (auto) 0.02 K/uL (0.00-0.02); Immature Granulocytes % (auto) 0.2 %; Lymphocytes % (auto) 19.9 %; Mean Corpuscular Hgb Conc 32.2 g/dL (32-36); Mean Corpuscular Volume 98.9 fL (80-100); Mean Platelet Volume 9.7 fL (7.4-10.4); Monocytes % (auto) 8.2 %; Neutrophils # (auto) 5.96 K/uL (1.4-6.5); Neutrophils % (auto) 69.6 %; Platelet Count 191 K/uL (130-400); RDW Coefficient of Variation 13.9 % (11.5-14.5); RDW Standard Deviation 50.5 fL (36.4-46.3); Red Blood Count 3.61 M/uL (4.2-5.4); White Blood Count 8.56 K/uL (4.8-10.8)
[2018-04-28 12:26] LABS: BUN Creatinine Ratio 15.3 (10-20); Calcium 8.8 mg/dl (8.5-10.1); Creatinine Clr Calc Pharmacy 30.5 ml/min; Est GFR (African American) 58.6; Est GFR (Non-African American) 50.5; Potassium 3.7 mmol/L (3.5-5.1)
--- NOTE | 2018-04-28 15:18 | Hospitalist Progress Note ---
Date of Service April 28, 2018 Assessment & Plan (1) Hematuria: in the setting of UTI Pelvic US: 1. Significant post void bladder residual at 500 cc. 2. Study is otherwise unremarkable for age. 3. Nonvisualization right ovary due to overlying bowel content. Hg stayed around 11 hematuria resolved while admitted Urologist Dr. Leal notified, consulted recommending to finish treatment for UTI and follow up in his office for Cystoscopy in 3 weeks (2) UTI (urinary tract infection): urine culture done as outpatient 04/20/18: (+) E Coli patient had pruritus with Cefnidir changed to Macrodantin given Zosyn IV while admitted repeat Urine Culture ordered, pending recommend to continue Macrodantin 100mg BID x 5 days to complete 10 day therapy consider repeat urine culture on ff up with PCP patient reporting diarrhea x 2 days C diff stool test ordered advised to monitor at home and call PCP immediately if persisting (3) Coronary artery disease: no cardiac symptoms discussed with Urologist Dr. Hu, advised to resume ASA tomorrow 04/29/18 continue Carvedilol, Isordil, Lisinopril (4) Aortic stenosis: euvolemic (5) Hypertension: stable continue above medications (6) CKD (chronic kidney disease) stage 3, GFR 30-59 ml/min: stable monitor DVT Prophylaxis SCDs Full Code as per patient Dispo ff up with PCP Dr Julian Galeas 05/02/18 ff up with Urologist Dr. Rober Leal in 3 weeks Subjective ff up for hematuria seen resting in bed, comfortable states she feels fine overall no hematuria today no abdominal pain, flank pain, urinary symptoms, fever/chills reports 2 episodes of diarrhea, no nausea denies chest pain, palpitations, dizziness no other symptoms Physical Exam 2 Vital Signs (Past 24 Hours): Last Vital Signs Temp 36.9 C 04/28/18 11:16 Pulse 87 04/28/18 11:16 Resp 16 04/28/18 11:16 BP 90/54 L 04/28/18 11:16 Pulse Ox 96 04/28/18 11:16 Physical Exam: General- oriented x 3, not in distress, speaks in sentences with no effort or accessory muscle use Eyes- anicteric Neck- no JVD Lungs- clear breath sounds bilaterally, no rales/wheezes Heart- normal rate, regular rhythm; no murmurs Abdomen- normal bowel sounds, nondistended, soft, nontender Extremities- no pretibial edema, no calf tenderness Neuro- alert, oriented x 3; no gross focal neurologic deficits Skin- warm & dry Results & Data Laboratory Results Laboratory Results - last 24 hr 04/27/18 04/27/18 04/27/18 11:44 17:30 23:25 WBC RBC Hgb 12.3 11.2 L Hct 37.7 33.9 L MCV MCH MCHC RDW Std Deviation RDW Coeff of Annie Plt Count MPV Immature Gran % (Auto) Neut % (Auto) Lymph % (Auto) Andrews % (Auto) Eos % (Auto) Baso % (Auto) Immature Gran # (Auto) Neut # (Auto) Lymph # (Auto) Andrews # (Auto) Eos # (Auto) Baso # (Auto) Sodium Potassium Chloride Carbon Dioxide Anion Gap BUN Creatinine Est Cr Clr Drug Dosing Est GFR ( Amer) Est GFR (Non-Af Amer) BUN/Creatinine Ratio Glucose Calcium Blood Type A Negative Antibody Screen POSITIVE A Antibody Identification Anti-D Crossmatch See Detail 04/28/18 04/28/18 11:45 11:45 WBC 8.56 RBC 3.61 L Hgb 11.5 L Hct 35.7 L MCV 98.9 MCH 31.9 MCHC 32.2 RDW Std Deviation 50.5 H RDW Coeff of Annie 13.9 Plt Count 191 MPV 9.7 Immature Gran % (Auto) 0.2 Neut % (Auto) 69.6 Lymph % (Auto) 19.9 Andrews % (Auto) 8.2 Eos % (Auto) 1.6 Baso % (Auto) 0.5 Immature Gran # (Auto) 0.02 Neut # (Auto) 5.96 Lymph # (Auto) 1.70 Andrews # (Auto) 0.70 H Eos # (Auto) 0.14 Baso # (Auto) 0.04 Sodium 139 Potassium 3.7 Chloride 105 Carbon Dioxide 30 Anion Gap 5.0 BUN 15 Creatinine 0.99 Est Cr Clr Drug Dosing 30.5 Est GFR ( Amer) 58.6 Est GFR (Non-Af Amer) 50.5 BUN/Creatinine Ratio 15.3 Glucose 128 H Calcium 8.8 Blood Type Antibody Screen Antibody Identification Crossmatch _ (1) Hematuria Glomerular morphologic changes: Hematuria type: unspecified type Qualified Code(s): R31.9 - Hematuria, unspecified
--- NOTE | 2018-04-28 17:40 | Discharge Summary ---
Date of Service April 28, 2018 Admission HPI Per Admitting Provider 88-year-old female with history of CAD, aortic stenosis, hypertension, CKD stage III, presenting with gross hematuriPatient was seen at the PCP office a week ago and was found to have urinary tract infection. Urine culture revealed E. coli and patient was given Cefnidir. Patient was able to tolerate the antibiotics only for 2 days due to not feeling well, pruritus. She was then switched to nitrofurantoin which the patient has been taking for 2 days. One day prior to admission the patient started to note hematuria but denies dysuria. This is associated with some mild suprapubic pain. Denies fever, chills, nausea, vomiting. Denies other symptoms She then proceeded to the ER for evaluation. At the ER, patient's H&H was around 12. Urologist Dr. Wilkes was consulted. On exam, patient is sitting up in bed, comfortable, nondistressed. Crocker catheter placed draining grossly bloody urine. Denies active shortness of breath, chest pain, dizziness, abdominal pain, nausea. Denies other symptoms Admission Exam Per Admitting Provider Vital Signs (Past 24 Hours): Last Vital Signs Temp 36.9 C 04/27/18 08:54 Pulse 71 04/27/18 08:54 Resp 18 04/27/18 08:54 BP 96/53 L 04/27/18 08:54 Pulse Ox 97 04/27/18 08:54 Physical Exam: General- oriented x 3, not in distress, speaks in sentences with no effort or accessory muscle use Head- atraumatic Eyes- PERRL, EOMI, anicteric ENT- oropharynx clear Neck- supple, no JVD, no adenopathy, no thyromegaly; carotids +2/2, no bruits appreciated Lungs- clear to auscultation bilaterally, no rales/wheezes Heart- normal rate, regular rhythm; no murmur, no gallop, no rub appreciated Abdomen- normal bowel sounds, nondistended, soft, nontender, no masses or hepatosplenomegaly Extremities- no pretibial edema, no calf tenderness; peripheral pulses intact Neuro- alert, oriented x 3; CN 2-12 grossly intact; motor 5/5 bilaterally; sensation 100% on all extremities; no other gross focal neurologic deficits Skin- warm & dry Principal Diagnosis GROSS HEMATURIA, IN THE SETTING OF UTI Discharge Exam Vital Signs (Past 24 Hours): Last Vital Signs Temp 36.9 C 04/28/18 11:16 Pulse 87 04/28/18 11:16 Resp 16 04/28/18 11:16 BP 90/54 L 04/28/18 11:16 Pulse Ox 96 04/28/18 11:16 Physical Exam: General- oriented x 3, not in distress, speaks in sentences with no effort or accessory muscle use Eyes- anicteric Neck- no JVD Lungs- clear breath sounds bilaterally, no rales/wheezes Heart- normal rate, regular rhythm; no murmurs Abdomen- normal bowel sounds, nondistended, soft, nontender Extremities- no pretibial edema, no calf tenderness Neuro- alert, oriented x 3; no gross focal neurologic deficits Skin- warm & dry Discharge Data Allergies Allergy/AdvReac Type Severity Reaction Status Date / Time latex Allergy Rash Verified 04/27/18 10:07 Consultations 04/27/18 11:34 Consult Urology Routine Ordered Studies 04/27/18 04:53 US pelvic complete Urgent US pelvic complete CLINICAL HISTORY: vaginal bleeding BLEEDING COMPARISON STUDY: None FINDINGS: The uterus measured 6.1 cm. The endometrial stripe measured 2 mm. The right ovary measured not identified due to overlying bowel content.. The left ovary measured 1.5 cm maximum dimension with normal vascular flow. There is no ultrasonographic evidence of ovarian torsion. It should be noted that ovarian torsion can be present with normal Doppler ultrasonographic findings. There was no evidence of pathologic free pelvic fluid. Bladder is distended with a postvoid residual of 500 cc IMPRESSION: 1. Significant post void bladder residual at 500 cc. 2. Study is otherwise unremarkable for age. 3. Nonvisualization right ovary due to overlying bowel content. Hospital Course (1) Hematuria: (1) Hematuria: in the setting of UTI Pelvic US: 1. Significant post void bladder residual at 500 cc. 2. Study is otherwise unremarkable for age. 3. Nonvisualization right ovary due to overlying bowel content. Hg stayed around 11 hematuria resolved while admitted Urologist Dr. Wilkes notified, consulted recommending to finish treatment for UTI and follow up in his office for Cystoscopy in 3 weeks recommend to resume ASA 1 day after discharge (2) UTI (urinary tract infection): urine culture done as outpatient 04/20/18: (+) E Coli patient had pruritus with Cefnidir changed to Macrodantin given Zosyn IV while admitted repeat Urine Culture ordered, pending recommend to continue Macrodantin 100mg BID x 5 days to complete 10 day therapy consider repeat urine culture on ff up with PCP patient reporting diarrhea x 2 days C diff stool test ordered advised to monitor at home and call PCP immediately if persisting (3) Coronary artery disease: no cardiac symptoms discussed with Urologist Dr. Hu, advised to resume ASA tomorrow 04/29/18 continue Carvedilol, Isordil, Lisinopril (4) Aortic stenosis: euvolemic (5) Hypertension: stable continue above medications (6) CKD (chronic kidney disease) stage 3, GFR 30-59 ml/min: stable monitor Dispo ff up with PCP Dr Julian Galeas 05/02/18 ff up with Urologist Dr. Rober Wilkes in 3 weeks Total Time Total Time Spent Total Time Spent (In Minutes): 40 minutes Discharge Plan Discharge Items Patient Disposition: Home - Self-Care Reason For Visit: GROSS HEMATURIA Discharge Diagnosis: BLOOD IN THE URINE, URINARY TRACT INFECTION Discharge Goals: Diagnostic testing and Therapeutic intervention Activity: As commented below Activity Comment: RESUME ACTIVITY GRADUALLY TOLERATED, ALWAYS BE CAREFUL WITH AMBULATION Lifting: Wait until after follow-up appointment Exercise/Sports: Wait until after follow-up appointment Driving/Machine Use Comment: NO DRIVING Non-emergency contact: Primary Care Provider Call non-emergency contact if: you have any medication questions, your symptoms worsen, your pain is not controlled, your pain is worsening, your pain is unusual for you, your pain is concerning for you and you have a fever Diet: Heart Healthy Addtl Provider Instructions: FOLLOW UP WITH [facility] PRIMARY CARE PHYSICIAN DR. SAV GALEAS ON 05/02/18 AT 12:45 PM. FOLLOW UP WITH UROLOGIST DR. NICA WILKES IN 3 WEEKS. YOU MAY RESUME TAKING ASPIRIN TOMORROW. DO NOT USE IBUPROFEN, NAPROXEN, ETC. RETURN TO THE ER IMMEDIATELY IF WITH RECURRENCE OF BLEEDING IN THE URINE. CALL PRIMARY CARE PHYSICIAN IMMEDIATELY IF WITH DIARRHEA, FEVER/CHILLS, ABDOMINAL PAIN, PAIN WITH URINATION. TAKE A PROBIOTIC DAILY WHILE ON ANTIBIOTICS AND 1 WEEK AFTER FINISHING ANTIBIOTIC COURSE. INCLUDE YOGURT IN YOUR DAILY DIET. Prescriptions: Continue carvedilol 25 mg tablet 37.6 mg PO BID RF: 0 atorvastatin 20 mg Tablet 20 mg PO DAILY RF: 0 aspirin 81 mg Tablet,Delayed Release (Dr/Ec) 81 mg PO Q OTHER DAY RF: 0 magnesium oxide 400 mg (241.3 mg magnesium) Tablet 400 mg PO DAILY RF: 0 omega 2-jju-qrh-fish oil [Fish Oil] 1,000 mg (120 mg-180 mg) Capsule 1 cap PO DAILY RF: 0 pantoprazole 40 mg tablet,delayed release (DR/EC) 40 mg PO QAM RF: 0 vit C,K-Sx-xbsvb-lutein-zeaxan [PreserVision AREDS-2] 710-317-19-1 mg-unit-mg- mg Capsule 1 tab PO BID RF: 0 calcium carbonate-vitamin D3 [Calcium 600 + D(3)] 600 mg(1,500mg) -400 unit Tablet 1 tab PO DAILY RF: 0 ptkiwsrg-plc-UK-lycopen-lutein [Centrum Silver] 0.4-300-250 mg-mcg-mcg Tablet 1 tab PO DAILY RF: 0 zoledronic eyfj-wkfetsgm-elspe [Reclast] 5 mg/100 mL Piggyback 1 dose IV YEARLY RF: 0 isosorbide dinitrate 10 mg tablet 10 mg PO HS RF: 0 lisinopril 2.5 mg tablet 2.5 mg PO HS RF: 0 vitamin E 400 unit Capsule 400 unit PO DAILY RF: 0 nitrofurantoin macrocrystal 100 mg capsule 100 mg PO BID 5 Days Qty: 10 RF: 0 Stand-Alone Forms: [facility] Discharge Orders: Discharge Order (Routine); Ordered 04/28/18 Ordered By: Raul Marley Admission Data Admit Date/Time: 04/27/18 08:26 Attending Provider: Raul Marley Admit Provider: Raul Marley Primary Care Provider: Teresa Quinteros Other Providers: Bebo Segovia ; Noe Ramsay ; Rober Wilkes I. ; William Kenney ; Beverly Dumont ; Tone Weinberg II ; Mckenna Manjarrez Service: Telemetry Other Interventions: Discharge Summary Assessment (RN) Last Done: 04/28/18 15:49 DC Date/Time DO NOT enter until pt leaves facility: 04/28/18 16:16
== END 2018-04-28 16:16 | disposition home or self-care (01) | DRG 690 ==
LOC: ED 02:39 → 2W 08:26

== ENCOUNTER 2018-09-20 05:32 | Inpatient (IN) ==
--- NOTE | 2018-08-30 09:15 | Anesthesiology Consultation ---
Date of Service August 30, 2018 The patient was seen by Dr. Murcia on 08/22/18 for preoperative cardiac clearance. The patient is noted to have underlying coronary disease with two stents placed in 2005. She also has borderline severe but not critical aortic stenosis from echo on 05/04/18. The patient has been asymptomatic from a cardiac standpoint with no angina pectoris and greater than 4 mets activity level. The patient is at moderate risk for cardiac complications but is acceptable to proceed with surgery. Assessment & Plan (1) Encounter for pre-operative examination: Chart Review Chart Review: Acceptable Risk for Surgery and Patient NOT seen in Pre Admission Testing Consults Requested none patient had cardiac clearance from Dr. Murcia History Surgery Operation Date: 09/20/18 07:30 Proposed Procedures p Right Robotic Video Assisted Thoracoscopy with Right Middle Lobe Wedge Resection, Possible Right Middle Lobectomy with Mediastinal Lymphadenectomy - Neptali Palacios MD, FACS Height/Weight Height: 5 ft 1 in Weight: 56.245 kg Allergies Allergy/AdvReac Type Severity Reaction Status Date / Time No Known Allergies Allergy Verified 08/29/18 14:53 Medications Home Medications Medication Instructions Recorded Confirmed Last Taken Centrum Silver 1 tab PO QAM 04/27/18 08/29/18 04/26/18 PreserVision AREDS-2 1 tab PO BID 04/27/18 08/29/18 04/26/18 aspirin 81 mg PO Q OTHER DAY 04/27/18 08/29/18 04/26/18 atorvastatin 20 mg PO QPM 04/27/18 08/29/18 04/26/18 calcium carbonate-vitamin D3 1 tab PO QAM 04/27/18 08/29/18 04/26/18 [Calcium 600 + D(3)] carvedilol 37.6 mg PO BID 04/27/18 08/29/18 04/26/18 isosorbide dinitrate 10 mg PO HS 04/27/18 08/29/18 04/26/18 lisinopril 2.5 mg PO HS 04/27/18 08/29/18 04/26/18 magnesium oxide 400 mg PO QPM 04/27/18 08/29/18 04/26/18 omega 7-foc-koo-fish oil [Fish Oil] 1 cap PO QAM 04/27/18 08/29/18 04/26/18 pantoprazole 40 mg PO QAM 04/27/18 08/29/18 04/26/18 vitamin E 400 unit PO QPM 04/27/18 08/29/18 04/26/18 zoledronic ysww-tlufliyn-wxtce 1 dose IV YEARLY 04/27/18 08/29/18 Unknown [Reclast] cyanocobalamin (vitamin B-12) 500 mcg PO QAM 08/29/18 08/29/18 Unknown [Vitamin B-12] Past Medical History Medical History Anemia Aortic stenosis, severe Coronary artery disease two stents placed 2005 GERD (gastroesophageal reflux disease) History of rheumatic fever as a child CAUSES HEART MURMUR Hx: UTI (urinary tract infection) Hyperlipidemia Hypertension Lung tumor CURRENT ISSUE Macular degeneration BOTH EYES Osteoarthritis Osteoporosis Past Family History Family History Other Family history non-contributory Past Surgical History Surgical History History of back surgery History of cardiac cath 10 YR AGO WITH STENTS X2- DONE [place] History of right hip replacement Hx of appendectomy Hx of cholecystectomy Hx of tonsillectomy Social History Smoking Status: Never smoker Do You Dip or Chew Tobacco: No Hx Alcohol Use: No Hx Substance Use: No Testing Electrocardiogram Date: 01/24/18 Findings: + NSR @ (76) and + AR (old anterior infarct) possible L atrial enlargement Chest X-Ray Date: 05/22/18 grossly stable L middle lobe cavitary lesion L inferior pole thyroid nodule chronic changes Echocardiogram Date: 05/04/18 EF: 60-64 LV Function: normal Other Findings: + LVH (moderate) Valvular Disease: + (borderline severe) Other Testing Laboratory Tests 04/27/18 05/01/18 05/01/18 04:33 17:49 17:49 WBC 9.97 Hgb 11.3 L Hct 34.8 L Plt Count 187 PT 12.0 INR 1.2 H APTT 19.9 L Sodium Potassium Chloride Carbon Dioxide BUN Creatinine Glucose 05/01/18 17:49 WBC Hgb Hct Plt Count PT INR APTT Sodium 138 Potassium 3.9 Chloride 105 Carbon Dioxide 27 BUN 19 H Creatinine 0.81 Glucose 86
[2018-09-20] MEDS ORDERED: LR 15ML/HR IV SCH (06:00)
[2018-09-20] MEDS ORDERED: fentaNYL citrate 100 MCG/2 ML VIAL ONE ×2 (06:33→12:28)
[2018-09-20] MEDS ORDERED: ATROPINE SULFATE 0.1 MG/ML 10ML SYR IV PRN (06:38)
[2018-09-20] MEDS ORDERED: ONDANSETRON INJ 2 MG/ML 2 ML VIAL IV PRN ×2 (06:38→13:34)
[2018-09-20] MEDS ORDERED: ePHEDrine sulfate 50 MG/ML AMP IV PRN (06:38)
[2018-09-20] MEDS ORDERED: LIDOCAINE HCL 2% 2 ML VIAL/AMP(20MG/ML) INFIL ONE ×2 (06:44→08:19)
[2018-09-20] MEDS ORDERED: BUPIVACAINE 0.5 % 5 MG/1 ML MPF 30ML VIAL ONE (07:01)
[2018-09-20] MEDS ORDERED: SODIUM CHLORIDE 0.9% PF 50 ML VIAL ONE (07:01)
[2018-09-20] MEDS ORDERED: BUPIVACAINE LIPOSOME 1.3% 266 MG/20 ML VIAL ONE (07:02)
--- NOTE | 2018-09-20 07:04 | History & Physical Report ---
Date of Service September 20, 2018 Assessment & Plan (1) Mass of middle lobe of right lung: Robot-assisted right thoracoscopy with wedge resection probable right middle lobectomy with mediastinal lymphadenectomy. Present on Admission?: Yes History of Present Illness This is a delightful 88-year-old woman who was found to have a mass in her right middle lobe. Very well preserved although she has some aortic stenosis. She has been cleared from surgery by her resin remover Dr. Yair Murcia. We had a long discussion in the office and had a very long discussion with the patient and her family about her age. 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 The patient and her family understand the implications of this quite well. Her lung fun ction shows she will tolerate a right middle lobectomy easily. She is very well preserved. We will proceed with a robot-assisted right thoracoscopy with a wedge resection frozen section and probable right middle lobectomy today on 09/20/2018. Primary Care Provider: Teresa Quinteros DO Allergies Allergy/AdvReac Type Severity Reaction Status Date / Time No Known Allergies Allergy Verified 09/20/18 06:09 Home Medications Home Medications Medication Instructions Recorded Confirmed Type Centrum Silver 1 tab PO QAM 04/27/18 08/29/18 History PreserVision AREDS-2 1 tab PO BID 04/27/18 09/20/18 History aspirin 81 mg PO Q OTHER DAY 04/27/18 09/20/18 History atorvastatin 20 mg PO QPM 04/27/18 09/20/18 History calcium carbonate-vitamin D3 1 tab PO QAM 04/27/18 08/29/18 History [Calcium 600 + D(3)] carvedilol 37.6 mg PO BID 04/27/18 08/29/18 History isosorbide dinitrate 10 mg PO HS 04/27/18 09/20/18 History magnesium oxide 400 mg PO QPM 04/27/18 09/20/18 History omega 1-lyi-jgw-fish oil [Fish Oil] 1 cap PO QAM 04/27/18 08/29/18 History pantoprazole 40 mg PO QAM 04/27/18 08/29/18 History vitamin E 400 unit PO QPM 04/27/18 09/20/18 History zoledronic krej-dwgmccnw-wmcvc 1 dose IV YEARLY 04/27/18 09/20/18 History [Reclast] cyanocobalamin (vitamin B-12) 500 mcg PO QAM 08/29/18 08/29/18 History [Vitamin B-12] Past Med/Surg History Medical History GERD (gastroesophageal reflux disease) History of rheumatic fever as a child CAUSES HEART MURMUR Hx: UTI (urinary tract infection) Hyperlipidemia Hypertension Lung tumor CURRENT ISSUE Macular degeneration BOTH EYES Osteoarthritis Osteoporosis Anemia Aortic stenosis, severe Coronary artery disease 3 stents placed 2005 Surgical History History of back surgery History of cardiac cath 10 YR AGO WITH STENTS X3- DONE IN [place] History of right hip replacement Hx of appendectomy Hx of cholecystectomy Hx of tonsillectomy Family History Other Family history non-contributory Social History Preferred Language: Greek Communication Ability: Effective Beliefs That Will Affect Care: None Current Living Situation: Alone Feels Safe at Home: Yes Safety Concerns: Feels Safe At This Time Smoking Status: Never smoker Do You Dip or Chew Tobacco: No Second Hand Exposure: No Hx Alcohol Use: No Hx Substance Use: No Review of Systems Review of Systems: All systems reviewed & are unremarkable except as noted in HPI & below Reviewed 10 systems today and all systems are unremarkable. She is had no productive cough. She is had no hemoptysis. She has no pain except "in my knees". Neurologically she is completely symptom-free. Physical Exam Physical Exam: Well-developed well-nourished female who appears much younger than her stated age. She wears glasses. Extra documents are intact. Her sclera anicteric. Her tongue is midline. She has no mucosal lesions. Her neck is supple she has no neck vein distention or lymphadenopathy. She has no axillary adenopathy. She is moving air well without wheezing or rails. She has a regular rate and rhythm of her heart with a loud systolic murmur. Her abdomen is soft nontender. She has no peripheral edema and she has palpable pulses. Neurologically she is completely intact. Results & Data Vital Signs (Past 12 Hours) Vital Signs Temp Pulse Resp BP Pulse Ox 09/20/18 05:54 36.7 C 75 18 148/49 H 100
[2018-09-20] MEDS ORDERED: PROPOFOL IV EMULSION 10 MG/ML 20 ML VIAL IV ONE (08:19)
[2018-09-20] MEDS ORDERED: CEFAZOLIN 250 MG/ML 1 GM VIAL ONE (08:19)
[2018-09-20] MEDS ORDERED: ONDANSETRON INJ 2 MG/ML 2 ML VIAL ONE (08:19)
[2018-09-20] MEDS ORDERED: PHENYLEPHRINE HCL 10 MG/ML VIAL ONE (08:19)
[2018-09-20] MEDS ORDERED: ROCURONIUM BROMIDE 10 MG/ML 5 ML VIAL ONE (08:19)
[2018-09-20] MEDS ORDERED: DEXAMETHASONE SOD INJ 4 MG/ML VIAL ONE (08:19)
[2018-09-20] MEDS ORDERED: ePHEDrine sulfate 50 MG/ML SYR ONE (08:25)
[2018-09-20] MEDS ORDERED: CEFAZOLIN 1000MG 1,000 MG/7.5 ML SYR IV ONE (08:38)
[2018-09-20] MEDS ORDERED: SURGICEL ABSORB HEMOSTAT 2IN X 14IN TOP ONE (08:52)
[2018-09-20] MEDS ORDERED: GLYCOPYRROLATE 0.2 MG/ML VIAL ONE (10:14)
[2018-09-20] MEDS ORDERED: NEOSTIGMINE METHYLSULFATE 5 MG/5 ML SYR ONE (10:14)
[2018-09-20] MEDS ORDERED: TISSEEL FIBRIN SEALANT 4ML TOP ONE (10:43)
--- NOTE | 2018-09-20 11:17 | Post Operative Brief Note ---
Immediate Post Op Note v1 Date of Surgery September 20, 2018 Pre & Post Diagnosis Operation Date: 09/20/18 07:30 Pre-Op Diagnosis: Right Lung Nodule Post-Op Diagnosis: Right Middle lobe adenocarcinoma Procedure Operation Date: 09/20/18 07:30 Actual Procedures p Right Robotic Video Assisted Thoracoscopy with Right Middle Lobe Wedge Resection, Right Middle Lobectomy with Mediastinal Lymphadenectomy(Right) - Neptali Palacios MD, FACS Surgeon Neptali Palacios MD, FACS Professor Of Environmental Science Marco QUINTANILLA Estimated Blood Loss 100 Findings Consistent with Post-Op Diagnosis Drains Chest Tube and Crocker Catheter
[2018-09-20] MEDS ORDERED: METOCLOPRAMIDE HCL INJ 5 MG/ML 2 ML VIAL IV ONE (11:32)
[2018-09-20] MEDS ORDERED: METOCLOPRAMIDE HCL INJ 5 MG/ML 2 ML VIAL ONE (11:43)
--- NOTE | 2018-09-20 11:56 | XRay Report ---
SINGLE VIEW CHEST CLINICAL HISTORY: Status post right middle lobe resection. FINDINGS: An AP, portable, upright chest radiograph is compared to study dated 05/21/2013 and correlat ed with chest CT dated 05/19/2018. The examination is degraded by portable technique and patient rotati on. The heart is mildly enlarged and there is atherosclerotic calcification of the thoracic aorta. A coronary artery stent is noted. A chest tube is present at the right apex. Chronic interstitial thic kening is similar to previous. There is postoperative change and volume loss consistent with right-si ded pulmonary resection. Airspace opacities in superior suture material projects over the right lung base. There are trace pleural effusions. Apical scarring is observed. No pneumothorax is seen. The sk eletal structures are osteopenic. The bony thorax is grossly intact. Subcutaneous cutaneous emphysema is noted along the right chest wall. IMPRESSION: 1. There is postoperative change and volume loss consistent with right-sided pulmonary resection. 2. Airspace opacities are seen at the right lung base and likely represent postoperative change. 3. A right apical chest tube is in place. No pneumothorax is seen. 4. Small pleural effusions. Electronically signed by: Rashi Christian M.D. 09/20/2018 11:55 AM
--- NOTE | 2018-09-20 12:09 | Operative Report ---
DATE OF OPERATION: 09/20/2018 PREOPERATIVE DIAGNOSIS: Hypermetabolic mass, right middle lobe. POSTOPERATIVE DIAGNOSIS: Adenocarcinoma, right middle lobe. PROCEDURES: 1. Robot-assisted thoracoscopic wedge resection with frozen section. 2. Robot-assisted thoracoscopic right middle lobectomy. 3. Robot-assisted thoracoscopic mediastinal lymphadenectomy. SURGEON: Neptali Palacios MD. BREAKDOWN MILL OPERATOR: SOCORRO Lerma (. Josefina was present for the entire case, was at the patient's bedside while I was at the console). ANESTHESIA: General anesthesia with endotracheal intubation using double lumen tube. SPECIFICS OF PROCEDURE AND FINDINGS: Daniella Fuentes is an 88-year-old remarkably preserved female with a mass in her right middle lobe. We had a long talk in the office about whether to proceed with surgery or not and the patient, after much consideration and discussion with her family, stated she would like to have this removed. On 09/20/2018, the patient underwent an uncomplicated robot-assisted thoracoscopic wedge resection of this middle lobe mass and then a robot-assisted thoracoscopic lobectomy and mediastinal lymphadenectomy. We had very little in the way of blood loss. She tolerated it quite well. She had a small air leak at the conclusion of the case. DESCRIPTION OF PROCEDURE: The patient was brought to the operating room, laid in supine position. General anesthesia was induced and endotracheal intubation performed with a double lumen tube. The patient was turned into the left lateral decubitus position. Right chest was prepped and draped in the usual sterile fashion. After appropriate time-out had been called, prophylactic antibiotics were given. An incision was made just anterior to the mid axillary line at about the eighth interspace and upon entering, it can be seen there were a few adhesions. An 8 mm port was placed anterior just lateral to the sternum and we visualized this going in with our scope. Using electrocautery, I took down the adhesions to the chest wall, which were flimsy. An 8 mm port was then placed posteriorly and then a 5 mm port was placed 3 cm from the spinous processes. This was the most posterior port. The fundraising assistant port was then placed anteriorly. Upon entering the chest, the mass could be seen. It appeared to be involving the pleura. A generous wedge resection was performed using several firings of the Endo-ANCELMO staplers. These were purple loads. This was then delivered off the field in an Endobag. While waiting for the frozen section, lymph node dissection was done. The level 8, level 7, level 2, level 4, level 10, level 11 lymph nodes were excised. I came around to the anterior side and dissected out the vein to the middle lobe. There is a fairly complete fissure and I started dissecting out above the continuation of pulmonary artery to the lower lobe when the frozen section came back as positive for an adenocarcinoma. I then dissected out the artery and the vein and developed a fissure anteriorly across the artery. There was only one artery supplying the middle lobe. This exposed the bronchus quite nicely and then I fired an Endo-ANCELMO stapler across the bronchus. This freed up things nicely and the lung was then retracted and an Endo-ANCELMO stapler was fired across the middle lobe vein. We then fired an Endo-ANCELMO across the anterior fissure and then the fissure between the middle lobe and the upper lobe. The remainder of the lobe was delivered off the field in an Endobag. There was really no significant bleeding noted. There was no air leak from the bronchus, although there were a few parenchymal tears, which were leaking air. This was not a significant amount. They were small and diffuse, and I did not think suturing them would be helpful. A 24-Irish chest tube was placed through the assistance port and directed towards the apex and held in place with heavy silk suture. The camera port was then closed with 0 Vicryl to close the muscle layers. The chest tube was held in place with heavy silk suture. A 4-0 Monocryl used in a running subcuticular fashion to approximate the wound edges. The patient had a small air leak, but was extubated in the room. She tolerated it well. I attest to the content of the Intraoperative Record and any orders documented therein. Any exceptions are noted below. TONYAD
[2018-09-20] MEDS: fentaNYL citrate 100 MCG/2 ML VIAL IV PRN ×2 (12:28→12:33)
--- NOTE | 2018-09-20 12:56 | Anesthesiology Progress Note ---
Date of Service September 20, 2018 Anesthesia Post Procedure Vital Signs Vital Signs: Temp Pulse Pulse Resp BP Pulse Ox 09/20/18 12:40 74 18 121/53 L 98 09/20/18 12:30 79 18 129/60 99 09/20/18 12:20 97.5 F L 79 18 120/55 L 94 09/20/18 12:10 78 18 123/56 L 94 09/20/18 12:00 78 18 127/55 L 100 09/20/18 11:50 74 18 129/62 100 09/20/18 11:40 75 18 143/61 H 100 09/20/18 11:33 97.2 F L 78 18 154/72 H 100 09/20/18 05:54 98.1 F 75 18 148/49 H 100 Pain Intensity Bilateral Knee: Pain Intensity: 2 Transfer of Care Handoff Completed per policy Notes Mental Status: alert / awake / arousable and participated in evaluation Patient Amnestic to Procedure: Yes Nausea / Vomiting: adequately controlled Pain: adequately controlled Airway Patency, RR, SpO2: stable & adequate BP & HR: stable & adequate Hydration State: stable & adequate Anesthetic Complications: no major complications apparent and Pt Satisfied with anesthetic care
[2018-09-20] MEDS ORDERED: ZOLEDRONIC ACID 5 MG/100 ML VIAL IV SCH (13:34)
[2018-09-20] MEDS ORDERED: MoRPHine SULFATE 2 MG/ML CARP IV PRN (13:34)
[2018-09-20] MEDS ORDERED: OXYCODONE HCL IR 5 MG TAB (IMMEDIATE RELEASE) PO PRN (13:34)
[2018-09-20] MEDS: ACETAMINOPHEN 1,000 MG/100 ML VIAL IV SCH ×2 (14:07→21:55)
[2018-09-20] MEDS: D5W AND 1/2NSS 1,000 ML IV SCH (14:07)
[2018-09-20] MEDS: METOCLOPRAMIDE HCL INJ 5 MG/ML 2 ML VIAL IV SCH (20:53)
[2018-09-20] MEDS: DOCUSATE SODIUM 100 MG CAP PO SCH (20:53)
[2018-09-20] MEDS: ATORVASTATIN 20 MG TAB PO SCH (20:54)
[2018-09-20] MEDS: MAGNESIUM OXIDE 400 MG TAB PO SCH (20:54)
[2018-09-20] MEDS: TOCOPHERYL, DL-ALPHA 400 UNITS CAP PO SCH (20:55)
[2018-09-20] MEDS: ISOSORBIDE DINITRATE 10 MG TAB PO SCH (20:55)
[2018-09-20] MEDS: CARVEDILOL 25 MG TAB PO SCH (20:56)
[2018-09-20] MEDS ORDERED: NON-FORMULARY MEDICATION (Vit C,E-Zn-Coppr-Lutein-Zeaxan [Preservision Areds-2] 1 TAB) PO SCH (21:00)
[2018-09-21] MEDS: D5W AND 1/2NSS 1,000 ML IV SCH (00:40)
[2018-09-21] MEDS: METOCLOPRAMIDE HCL INJ 5 MG/ML 2 ML VIAL IV SCH (04:25)
[2018-09-21] MEDS: ACETAMINOPHEN 1,000 MG/100 ML VIAL IV SCH (05:45)
[2018-09-21 06:02] LABS: Hematocrit (blood only) 26.9 % (37-47); Hemoglobin 8.3 g/dL (12.0-16.0); Immature Granulocytes # (auto) 0.02 K/uL (0.00-0.02); Immature Granulocytes % (auto) 0.2 %; Lymphocytes # (auto) 0.89 K/uL (1.2-3.4); Lymphocytes % (auto) 8.5 %; Mean Corpuscular Volume 85.1 fL (80-100); Mean Platelet Volume 9.2 fL (7.4-10.4); Monocytes # (auto) 1.04 K/uL (0.11-0.59); Monocytes % (auto) 9.9 %; Neutrophils # (auto) 8.53 K/uL (1.4-6.5); Neutrophils % (auto) 81.4 %; Platelet Count 126 K/uL (130-400); RDW Coefficient of Variation 17.6 % (11.5-14.5); RDW Standard Deviation 55.5 fL (36.4-46.3); Red Blood Count 3.16 M/uL (4.2-5.4); White Blood Count 10.48 K/uL (4.8-10.8)
[2018-09-21 06:04] LABS: Mean Corpuscular Hgb Conc 30.9 g/dL (32-36)
[2018-09-21 06:19] LABS: BUN Creatinine Ratio 22.9 (10-20); Calcium 8.2 mg/dl (8.5-10.1); Creatinine Clr Calc Pharmacy 44.3 ml/min; Est GFR (African American) 91.2; Est GFR (Non-African American) 78.7; Potassium 4.4 mmol/L (3.5-5.1)
[2018-09-21 06:27] LABS: INR 1.2 (0.9-1.1); Partial Thromboplastin Ratio 0.9; Partial Thromboplastin Time 24.7 Seconds (21.0-31.0); Prothrombin Time 11.9 Seconds (9.0-12.0)
--- NOTE | 2018-09-21 07:15 | XRay Report ---
XR chest 1V portable CLINICAL HISTORY: RML COMPARISON STUDY: Chest radiograph September 20, 2018. FINDINGS: Postoperative findings within the right lung are noted. Right apical chest tube is in place . A small right apical pneumothorax with superior pleural separation of 1.1 cm is noted. Lucency with in the right lower hemithorax also likely reflects pleural gas. There is no evidence for pulmonary ed yosef. There is mild right lower lung opacity. IMPRESSION: 1. Small right pneumothorax. Right chest tube in place. 2. Postoperative findings within the right lung. Mild right lower lung opacities. Electronically signed by: Jovanny Peguero M.D. 09/21/2018 7:14 AM
--- NOTE | 2018-09-21 08:04 | Progress Note ---
DATE: 09/21/2018 Ms. Fuentes was 1 day status post a right middle lobectomy. She looks great. Pain control has been great. She is on room air. She is voiding. I am going to send her to third floor. She has been in stable rhythm all night. She drained very little from chest tube, but she still has a small air leak. I have explained to her that she is going to have to wait until this leak seals. She sounds good on exam.
--- NOTE | 2018-09-21 08:29 | Anesthesiology Progress Note ---
Date of Service September 21, 2018 Anesthesia Post Procedure Vital Signs Vital Signs: Temp Pulse Pulse Pulse Pulse Resp BP 09/21/18 06:51 36.6 C 83 16 09/21/18 04:00 09/21/18 03:03 36.8 C 78 16 09/21/18 02:26 09/21/18 00:54 36.7 C 74 17 09/20/18 23:00 36.6 C 76 18 09/20/18 22:25 36.6 C 77 17 91/48 L 09/20/18 22:20 78 09/20/18 19:14 36.6 C 84 19 118/68 09/20/18 18:31 36.6 C 82 20 09/20/18 16:34 36.5 C 79 18 09/20/18 15:20 36.6 C 81 19 09/20/18 14:34 36.5 C 80 12 09/20/18 13:34 36.5 C 78 12 09/20/18 13:10 80 18 09/20/18 12:55 79 20 09/20/18 12:40 74 18 09/20/18 12:30 79 18 09/20/18 12:20 36.4 C L 79 18 09/20/18 12:10 78 18 09/20/18 12:00 78 18 09/20/18 11:50 74 18 09/20/18 11:40 75 18 09/20/18 11:33 36.2 C L 78 18 BP Pulse Ox Pulse Ox 09/21/18 06:51 105/57 L 93 09/21/18 04:00 96 09/21/18 03:03 104/59 L 94 09/21/18 02:26 98 09/21/18 00:54 103/52 L 96 96 09/20/18 23:00 94/52 L 97 97 09/20/18 22:25 96 96 09/20/18 22:20 09/20/18 19:14 98 09/20/18 18:31 132/70 99 99 09/20/18 16:34 131/64 94 94 09/20/18 15:20 108/60 95 09/20/18 14:34 110/60 100 100 09/20/18 13:34 114/63 99 97 09/20/18 13:10 116/54 L 98 09/20/18 12:55 113/50 L 98 09/20/18 12:40 121/53 L 98 09/20/18 12:30 129/60 99 09/20/18 12:20 120/55 L 94 09/20/18 12:10 123/56 L 94 09/20/18 12:00 127/55 L 100 09/20/18 11:50 129/62 100 09/20/18 11:40 143/61 H 100 09/20/18 11:33 154/72 H 100 Pain Intensity Bilateral Knee: Pain Intensity: 2 Notes Mental Status: alert / awake / arousable and participated in evaluation Nausea / Vomiting: adequately controlled Pain: adequately controlled Airway Patency, RR, SpO2: stable & adequate BP & HR: stable & adequate Hydration State: stable & adequate
[2018-09-21] MEDS: CYANOCOBALAMIN 500 MCG TABLET (VITAMIN B-12) PO SCH (08:33)
[2018-09-21] MEDS: CARVEDILOL 25 MG TAB PO SCH ×2 (08:33→20:21)
[2018-09-21] MEDS: CEROVITE ADV FORMULA TAB PO SCH (08:34)
[2018-09-21] MEDS: PANTOprazole 40 MG TAB PO SCH (08:34)
[2018-09-21] MEDS: ENOXAPARIN INJ 40 MG/0.4 ML SYR SQ SCH (08:34)
[2018-09-21] MEDS: CALCIUM 600MG + VIT D 400 IU TAB PO SCH (08:34)
[2018-09-21] MEDS: DOCUSATE SODIUM 100 MG CAP PO SCH ×2 (08:35→20:24)
[2018-09-21] MEDS ORDERED: ASPIRIN 81 MG ECTAB PO SCH (09:00)
[2018-09-21] MEDS: MAGNESIUM OXIDE 400 MG TAB PO SCH (20:25)
[2018-09-21] MEDS: ATORVASTATIN 20 MG TAB PO SCH (20:25)
[2018-09-21] MEDS: TOCOPHERYL, DL-ALPHA 400 UNITS CAP PO SCH (20:25)
[2018-09-21] MEDS: ISOSORBIDE DINITRATE 10 MG TAB PO SCH (20:26)
[2018-09-21] MEDS: ACETAMINOPHEN 500 MG TAB PO PRN (22:05)
[2018-09-22] MEDS: ACETAMINOPHEN 500 MG TAB PO PRN ×2 (03:18→12:38)
--- NOTE | 2018-09-22 07:34 | XRay Report ---
XR chest 1V portable CLINICAL HISTORY: RML COMPARISON STUDY: Chest radiograph September 21, 2018. FINDINGS: Right apical chest tube remains in place. Right lower lung opacity persists. Postoperative findings within the right lung are noted. Lucency within the right lower hemithorax favors a pneumoth orax. A small right apical pneumothorax has slightly decreased in size. Superior pleural separation m easures 4 mm. IMPRESSION: 1. Right chest tube in place. Small right pneumothorax. Apical component has slightly decreased while basilar component appears similar. 2. Slight increase in right lower lung opacity. Electronically signed by: Jovanny Peguero M.D. 09/22/2018 7:33 AM
--- NOTE | 2018-09-22 07:43 | XRay Report ---
XR chest 1V portable HISTORY: 88 years-old Female tube removal status post removal of right-sided chest tube COMPARISON: Chest radiograph of same day at 7:15 AM TECHNIQUE: Portable AP view of the chest FINDINGS: Status post removal of the right-sided chest tube. Unchanged tiny right apical pneumothorax, pleural separation of 4 mm. Postoperative changes of the right lung base with persistent right lung base opac ity. Cardiac mediastinal and hilar silhouettes are unchanged. Lungs are hyperinflated. Degenerative c hanges of the shoulders and spine. IMPRESSION: 1. Status post removal of the right-sided chest tube with unchanged tiny right apical pneumothorax. 2. Postoperative changes of the right lung base with persistent right lung base opacity. The above report was generated using voice recognition software. It may contain grammatical, syntax o r spelling errors. Electronically signed by: Дмитрий Pope M.D. 09/22/2018 7:42 AM
[2018-09-22] MEDS: DOCUSATE SODIUM 100 MG CAP PO SCH (08:39)
[2018-09-22] MEDS: CALCIUM 600MG + VIT D 400 IU TAB PO SCH (08:39)
[2018-09-22] MEDS: CARVEDILOL 25 MG TAB PO SCH (08:40)
[2018-09-22] MEDS: PANTOprazole 40 MG TAB PO SCH (08:41)
[2018-09-22] MEDS: CEROVITE ADV FORMULA TAB PO SCH (08:41)
[2018-09-22] MEDS: CYANOCOBALAMIN 500 MCG TABLET (VITAMIN B-12) PO SCH (08:42)
[2018-09-22] MEDS: ENOXAPARIN INJ 40 MG/0.4 ML SYR SQ SCH (08:43)
--- NOTE | 2018-09-22 14:54 | Discharge Summary ---
DISCHARGE DIAGNOSES: Adenocarcinoma, right middle lobe. HOSPITAL COURSE: Daniella Cutler is a delightful 88-year-old patient who had a hypermetabolic mass in the right middle lobe. We had a long talk about this and after multiple discussions with her physicians and her family, she asked that this be removed. On 09/20/2018, the patient was brought to the operating room and underwent an uncomplicated robot-assisted thoracoscopic right middle lobe wedge resection. When the frozen section came back as adenocarcinoma, we proceeded with a right middle lobectomy. We also did a complete lymph node dissection. We had very little blood loss. I did watch her in telemetry overnight as she has a history of aortic stenosis and I want to make sure that we did not have any cardiac issues, especially in the way of any arrhythmias. The patient did quite well. She never had any problems from a rhythm standpoint. She was eating a house diet and ambulating in the hallway the day of surgery. We removed her chest tube on postop day 2. She did quite well with this. Her incisions were clean. Her x-ray looked quite good. This was an adenocarcinoma and there are still some stains pending, however, at this point it appears that her nodes are negative and we have an early stage cancer. I do not think the pleura was involved grossly, but the elastic lamina stain is not back as of yet. At this point, I am quite pleased with her. I will see her back next week to go over her final pathology. Discharge instructions were given. She is to call me should any problems arise.
== END 2018-09-22 13:11 | disposition home health service (06) | DRG 164 ==
LOC: ASU 05:32 → 2S 11:24 → 3W 09-21 10:17